=== PATIENT | male | born 2005 | race Two or more races ===

== ENCOUNTER 2024-11-20 11:53 | Inpatient (IN) | payer MEDICAID, SELFPAY ==
[2024-11-20] VITALS (50 sets, daily range): BP systolic 94–161; BP diastolic 52–111; PULSE 40–120; RESP 14–35; TEMP 36.2–37.1; O2SAT 73–100; BMI 26.9; BMI 25.9
--- NOTE | 2024-11-20 11:59 | PD.EDAMS ---
Altered Mental Status RME/HPI General Chief Complaint: Altered Mental Status Stated Complaint: STAT Time Seen by Provider: 11/20/24 12:03 Arrival date/time: 11/20/24 11:53 RME / HPI RME / HPI narrative: 19 year old male with no stated medical history presents to the ED BIBA from home for evaluation of altered mental status today. Per medics report, family on scene stated the patient was in the restroom about to shower when they heard a loud thud. States they found the patient on the floor and described body to be locked . On their arrival, patient was altered, bradycardic in the 40s, hypotensive in the 80s, diaphoretic, and pale. Prehospital Given 0.5mg Atropine and HR improved to 60-70s. Medic stated the patient was started on IV fluids; however, en route became combative and pulled out his IV. In the ED, patient appears confused. When asked if he has any medical history or where he is, he responds [place] . When asked if he has any allergies he responds seafood . No further history obtainable from the patient. Related Data Previous Rx's ?Medication ?Instructions ?Recorded levetiracetam 500 mg tablet 500 mg PO BID #30 tabs 11/23/24 (Keppra) Allergies Allergy/AdvReac Type Severity Reaction Status Date / Time Fish Containing Products Allergy Verified 11/21/24 12:53 shellfish derived Allergy Verified 11/21/24 12:53 Review of Systems Review of Systems ROS Unobtainable: unobtainable due to mental status Past Medical History Past Medical History NEUROLOGIC: Negative Neurological Disorders CARDIAC: Negative Cardiac Disorders GENITOURINARY: Negative Renal Disease Social History SMOKING STATUS: Unknown if ever smoked SUBSTANCE USE: marijuana (First time today. ) ED Exam General General appearance: Present other (Awake, confused, mildly agitated ) Head Head exam: Present atraumatic and normocephalic Eye Eye exam: Present normal appearance, PERRL and EOMI ENT ENT exam: Present normal exam, normal oropharynx and mucous membranes moist Neck Neck exam: Present normal inspection, full ROM and trachea midline Chest Chest inspection: Present normal inspection and symmetric chest wall rise Respiratory Respiratory exam: Present normal lung sounds bilaterally Cardiovascular Cardiovascular exam: Present regular rate, normal rhythm and normal heart sounds Abdominal Exam Abdominal exam: Present soft and normal bowel sounds Extremities Exam Extremities exam: Present full ROM Back Exam Back exam: Present full ROM and other (abrasion right shoulder) Neurological Exam Neurological exam: Present other (Awake, appears confused, mildly agitated but is redirectable, answering questions inappropriately, moving all extremities ) Psychiatric Psychiatric exam: Present agitated Skin Skin exam: Present warm, dry, intact and normal color Course Quality Measures none Orders Category Date Time Status 24 HR Medical Restraints Q2HR Care 11/20/24 14:37 Completed Bedside COVID-19 Antigen Test NOW Care 11/20/24 12:04 Completed Bedside Influenza A&B Antigen Test NOW Care 11/20/24 12:[address] Screening NOW Care 11/20/24 13:34 Completed EKG (ED ONLY) *Do not use* NOW Care 11/20/24 12:05 Completed Emergency Titration Protocol Stat Care 11/20/24 15:50 Ordered Emergency Titration Protocol Stat Care 11/20/24 16:12 Ordered Emergency Titration Protocol Stat Care 11/20/24 16:52 Ordered Insert IV NOW Care 11/20/24 12:11 Completed Insert NG / OG tube NOW Care 11/20/24 14:54 Completed Intubation NOW Care 11/20/24 14:43 Completed Intubation NOW Care 11/20/24 14:[address] angio chest Stat Exams 11/20/24 13:[address] head/brain wo con Stat Exams 11/20/24 12:04 Completed EKG (ED Only) Stat Exams 11/20/24 12:05 Draft XR chest 1V post procedure Stat Exams 11/20/24 14:55 Completed ABG [Arterial Blood Gas] Stat Lab 11/20/24 15:17 Completed ABG [Arterial Blood Gas] Stat Lab 11/20/24 16:23 Completed ABG [Arterial Blood Gas] Stat Lab 11/20/24 17:56 Completed Acetaminophen Stat Lab 11/20/24 14:10 Completed Alcohol, Blood Medical Stat Lab 11/20/24 12:00 Completed Ammonia Stat Lab 11/20/24 14:10 Completed Arterial Blood Gas Stat Lab 11/20/24 15:03 Completed CBC Stat Lab 11/20/24 12:00 Completed CMP [Comprehensive Metabolic Panel] Stat Lab 11/20/24 12:00 Completed CMP [Comprehensive Metabolic Panel] Stat Lab 11/20/24 14:10 Completed D-Dimer Stat Lab 11/20/24 12:00 Completed Drug Screen,Urine Stat Lab 11/20/24 13:11 Completed Salicylate Stat Lab 11/20/24 14:10 Completed Sputum Culture and Gram Stain Routine Lab 11/20/24 15:03 Completed T4 (Thyroxine) Stat Lab 11/20/24 14:10 Completed TSH [Thyroid Stimulating Hormone] Stat Lab 11/20/24 14:10 Completed Troponin I Stat Lab 11/20/24 12:00 Completed VBG [Venous Blood Gas] Stat Lab 11/20/24 14:10 Completed Diazepam Inj [Valium Inj] Med 11/20/24 13:56 Discontinued 10 mg .ROUTE .STK-MED ONE Diazepam Inj [Valium Inj] Med 11/20/24 14:07 Discontinued 5 mg IVP X1 ONE DiphenhydrAMINE INJ [Benadryl Inj] Med 11/20/24 13:57 Discontinued 50 mg .ROUTE .STK-MED ONE DiphenhydrAMINE INJ [Benadryl Inj] Med 11/20/24 14:08 Discontinued 50 mg IVP X1 ONE Etomidate Inj [Amidate Inj] Med 11/20/24 14:33 Discontinued 20 mg IVP X1 ONE Haloperidol Lactate [Haldol Inj] Med 11/20/24 13:54 Discontinued 5 mg .ROUTE .STK-MED ONE Midazolam Inj [Versed Inj] Med 11/20/24 13:49 Discontinued 2 mg .ROUTE .STK-MED ONE Midazolam Inj [Versed Inj] Med 11/20/24 13:42 Discontinued 2 mg IVP X1 ONE Midazolam Inj [Versed Inj] Med 11/20/24 13:53 Discontinued 2 mg IVP X1 ONE Midazolam Inj [Versed Inj] Med 11/20/24 13:00 Discontinued 5 mg IVP X1 ONE Midazolam Inj [Versed Inj] Med 11/20/24 16:19 Discontinued 5 mg IVP X1 ONE Midazolam Inj [Versed Inj] Med 11/20/24 13:03 Discontinued 6 mg .ROUTE .STK-MED ONE Midazolam Inj [Versed Inj] Med 11/20/24 16:08 Discontinued 6 mg .ROUTE .STK-MED ONE Midazolam/Ns 100 mg Ivpb [Versed Pf Inj in Ns Premix] Med 11/20/24 15:48 Discontinued 100 mg in 100 ml IV 1 mg/hr Propofol 1,000 mg Ivpb [Diprivan Ivpb] Med 11/20/24 14:37 Discontinued 1,000 mg in 100 ml IV 5 mcg/kg/min Ringers Lactated 1000 ml [Lactated Ringers] 1,000 ml Med 11/20/24 12:05 Discontinued IV 999 mls/hr Ringers Lactated 1000 ml [Lactated Ringers] 1,000 ml Med 11/20/24 13:34 Discontinued IV 999 mls/hr Rocuronium Inj [Zemuron Inj] Med 11/20/24 16:12 Discontinued 100 mg .ROUTE .STK-MED ONE Rocuronium Inj [Zemuron Inj] Med 11/20/24 16:13 Discontinued 50 mg IVP X1 ONE Rocuronium Inj [Zemuron Inj] Med 11/20/24 14:33 Discontinued 75 mg IVP X1 ONE fentaNYL 2,500 MCG/250 ML BAG [Sublimaze Inj 2,500 MCG/ Med 11/20/24 15:50 Discontinued 250 ML BAG] 2,500 mcg in 250 ml IV 25 mcg/hr levETIRAcetam INJ [Keppra Inj] Med 11/20/24 12:04 Discontinued 1,000 mg IVP X1 ONE Sputum Induction PRN RT 11/20/24 15:00 Ordered Vital Signs Vital signs: Vital Signs Temperature 97.8 F 11/20/24 12:09 Pulse Rate 89 11/20/24 12:09 Respiratory Rate 16 11/20/24 12:09 Blood Pressure 114/60 11/20/24 12:09 Pulse Oximetry (%) 96 11/20/24 12:09 Oxygen Delivery Method Room Air 11/20/24 12:09 Pulse ox is 96% on room air which is adequate. Altered Mental Status MDM Narrative MDM Narrative:: Patient is a 19-year-old male is in the emergency department brought in by EMS after having passed out in the bathroom. Concern for ACS arrhythmia electrolyte abnormality viral syndrome pneumonia overdose intoxication first-time seizure among others. Immediately placed in resuscitation room, obtain IV access. Ordered CT brain, labs, seizure medications, and placed him on monitor tech. Labs with evidence of leukocytosis 12.6, no left shift. No other hematologic abnormality. Patient D-dimer is 803. Ordered CT angio of the chest. Patient blood gas pH 7.23 pCO2 51 postintubation. Increased patient's respiratory rate of loss in the CO2. Patient is feeling within a gap acidosis, likely secondary to patient's seizure. Patient received fluid resuscitation, repeat labs with normal gap, bicarb 17.7. Creatinine normal. No significant transaminitis. Ammonia is 34. Troponin not elevated. Thyroid studies unremarkable. Tylenol salicylate negative, patient is positive for marijuana negative for alcohol. Chest x-ray unremarkable for acute abnormalities. Head CT without any evidence of acute intracranial hemorrhage on my assessment. 13:01h Patient had a grand mal seizure, lasting ~ 1 minute. Given 5mg Versed. Keppra ordered at 12:04h and yet to be given. Per mother, patient was talking to her just prior to seizing. 13:42h Patient is agitated at this time. Will order 2mg Versed. 13:42h RN reports the patient is still agitated, has yet to go to CT. 14:00h Patient combative, grover scott called overhead. During this time he had urine incontinence. Concern for possible repeat seizure. Versed ordered. 14:25h Notified by RN the patient is still combative in CT in spite of receiving 5mg IV Valium and 50mg IV Benadryl. Patient was also given 2mg IV Versed at 13:46h and 13:55h. Plan to intubate given concerns for subclinical seizures, status epilepticus as patient has not returned to his baseline and airway protection. 14:46h Patient intubated with no complications. Given 20mg Etomidate and 75mg Rocuronium. 13:48h Called to bedside by RN who reports the patient is awake. I pushed 20mg of Propofol and the Propofol drip was increased to 20mcg/kg/min. Will also start the patient on Versed drip. Despite this patient combative, is in 4-point restraints, concern that patient is going to self extubate. Also concerned that given patient's episodes of agitation, patient did not return to baseline, concern for acute intracranial pathology. Patient was given 50 rocuronium, sedation increased so that we can complete patient's scans. Patient was a CT scan, without any complications. ABG with pCO2 51. Increased respiratory rate. Will get a repeat blood gas. 16:54h discussed case with transmission and coordination engineer Dr. Cardona, accepted patient for admission. Patient is currently on 50 of propofol, 3 of Versed, 25 with fentanyl. Patient data External records reviewed:: EMS form Clinical information provided by:: patient and EMS Social determinants that could affect healthcare access:: none Patient has the following chronic illnesses:: None How is presenting disease/condition affected by chronic disease/condition?: no chronic disease Evaluation data The following diagnostics were reviewed and interpreted by me:: lab results, radiology exam(s) and EKG tracing(s) Lab and/or radiology exams considered but not ordered:: None Interpretation Summary: See MDM Medications / Prescriptions Medications or Prescriptions considered but not ordered:: None Medication administrations:: Medication Administration History Discontinued Medications Acetaminophen (Acetaminophen 325 Mg Tablet) 650 mg PO Q4HR PRN PRN Reason: Pain Scale 1-10 or Temp >100 Stop: 12/20/24 17:06 Diazepam (Diazepam Inj 5 Mg/Ml Vial 2 Ml) Confirm Administered Dose 10 mg .ROUTE .STK-MED ONE Stop: 11/20/24 13:57 Last Admin: 11/20/24 14:36 Dose: Not Given Documented By: KIRILL Non-Admin Reason: Duplicate Medication on eMAR Diazepam (Diazepam Inj 5 Mg/Ml Vial 2 Ml) 5 mg IVP X1 ONE Stop: 11/20/24 14:08 Last Admin: 11/20/24 14:05 Dose: 5 mg Documented By: KIRILL Diphenhydramine HCl (Diphenhydramine Inj 50 Mg/Ml Vial) Confirm Administered Dose 50 mg .ROUTE .STK-MED ONE Stop: 11/20/24 13:58 Last Admin: 11/20/24 14:36 Dose: Not Given Documented By: KIRILL Non-Admin Reason: Duplicate Medication on eMAR Diphenhydramine HCl (Diphenhydramine Inj 50 Mg/Ml Vial) 50 mg IVP X1 ONE Stop: 11/20/24 14:09 Last Admin: 11/20/24 14:13 Dose: 50 mg Documented By: KIRILL Enoxaparin Sodium (Enoxaparin Sod Inj 40 Mg/0.4 Ml Syringe) 40 mg SC HS HANNA Stop: 12/05/24 20:59 Last Admin: 11/22/24 20:40 Dose: 40 mg Documented By: Admin: 11/21/24 21:27 Dose: 40 mg Documented By: MARY Etomidate (Etomidate Inj 2 Mg/Ml Vial 10 Ml) 20 mg IVP X1 ONE Stop: 11/20/24 14:34 Last Admin: 11/20/24 14:44 Dose: 20 mg Documented By: PAULINE Comments: MED GIVEN BY SANDHYA CODY Haloperidol Lactate (Haloperidol Lact Inj 5 Mg/Ml Vial) Confirm Administered Dose 5 mg .ROUTE .STK-MED ONE Stop: 11/20/24 13:55 Last Admin: 11/20/24 14:36 Dose: Not Given Documented By: KIRILL Non-Admin Reason: Discontinued Haloperidol Lactate (Haloperidol Lact Inj 5 Mg/Ml Vial) 5 mg IV Q6HR PRN PRN Reason: AGITATION (SEVERE) Stop: 11/25/24 18:04 Heparin Sodium (Porcine) (Heparin Sod Inj 5000 Unit/Ml Vial) 5,000 unit SC Q8HR HANNA Stop: 12/04/24 17:14 Last Admin: 11/21/24 05:16 Dose: 5,000 unit Documented By: LISA Co-signed By: DEYA Admin: 11/20/24 22:42 Dose: Not Given Documented By: LISA Non-Admin Reason: Wrong Time Comments: last dose given 1855 Admin: 11/20/24 18:56 Dose: 5,000 unit Documented By: YURI Co-signed By: LISA Lactated Ringer's (Lactated Ringers) 1,000 mls @ 999 mls/hr IV .Q1H1M ONE Stop: 11/20/24 13:05 Last Infusion: 11/20/24 14:24 Dose: Infused Documented By: Admin: 11/20/24 13:23 Dose: 999 mls/hr Documented By: KIRILL Lactated Ringer's (Lactated Ringers) 1,000 mls @ 999 mls/hr IV .Q1H1M ONE Stop: 11/20/24 14:34 Last Infusion: 11/20/24 16:20 Dose: Infused Documented By: Admin: 11/20/24 14:59 Dose: 999 mls/hr Documented By: PAULINE Propofol (Diprivan Ivpb) 1,000 mg in 100 mls @ 2.558 mls/hr IV .Q24H PRN; Protocol PRN Reason: PER PROTOCOL Stop: 12/20/24 14:36 Last Titration: 11/20/24 23:58 Dose: 0 mcg/kg/min, 0 mls/hr Documented By: Titration: 11/20/24 23:45 Dose: 5 mcg/kg/min, 2.558 mls/hr Documented By: Titration: 11/20/24 23:40 Dose: 10 mcg/kg/min, 5.117 mls/hr Documented By: Titration: 11/20/24 23:25 Dose: 15 mcg/kg/min, 7.675 mls/hr Documented By: Titration: 11/20/24 23:00 Dose: 20 mcg/kg/min, 10.233 mls/hr Documented By: Titration: 11/20/24 22:45 Dose: 20 mcg/kg/min, 10.233 mls/hr Documented By: Admin: 11/20/24 22:36 Dose: 25 mcg/kg/min, 12.791 mls/hr Documented By: CMN Co-signed By: BB Titration: 11/20/24 22:30 Dose: Infused Documented By: Titration: 11/20/24 22:15 Dose: Infused Documented By: Titration: 11/20/24 22:00 Dose: 35 mcg/kg/min, 17.908 mls/hr Documented By: Titration: 11/20/24 21:28 Dose: 40 mcg/kg/min, 20.466 mls/hr Documented By: Titration: 11/20/24 21:00 Dose: 45 mcg/kg/min, 23.024 mls/hr Documented By: Titration: 11/20/24 20:20 Dose: 45 mcg/kg/min, 23.024 mls/hr Documented By: Titration: 11/20/24 20:00 Dose: 50 mcg/kg/min, 25.583 mls/hr Documented By: Titration: 11/20/24 19:00 Dose: 50 mcg/kg/min, 25.583 mls/hr Documented By: Titration: 11/20/24 18:00 Dose: 50 mcg/kg/min, 25.583 mls/hr Documented By: Titration: 11/20/24 17:00 Dose: 50 mcg/kg/min, 25.583 mls/hr Documented By: Titration: 11/20/24 16:18 Dose: 50 mcg/kg/min, 25.583 mls/hr Documented By: Titration: 11/20/24 16:00 Dose: 20 mcg/kg/min, 10.233 mls/hr Documented By: Titration: 11/20/24 15:50 Dose: 20 mcg/kg/min, 10.233 mls/hr Documented By: Titration: 11/20/24 15:45 Dose: 10 mcg/kg/min, 5.117 mls/hr Documented By: Admin: 11/20/24 14:50 Dose: 5 mcg/kg/min, 2.558 mls/hr Documented By: DB Co-signed By: KIRILL Midazolam HCl (Versed Pf Inj In Ns Premix) 100 mg in 100 mls @ 1 mls/hr IV .Q24H PRN; Protocol PRN Reason: PER PROTOCOL Stop: 11/25/24 15:47 Last Titration: 11/21/24 07:45 Dose: 0 mg/hr, 0 mls/hr Documented By: Titration: 11/21/24 07:00 Dose: 5 mg/hr, 5 mls/hr Documented By: Titration: 11/21/24 06:00 Dose: 5 mg/hr, 5 mls/hr Documented By: Titration: 11/21/24 05:00 Dose: 5 mg/hr, 5 mls/hr Documented By: Titration: 11/21/24 04:00 Dose: 5 mg/hr, 5 mls/hr Documented By: Titration: 11/21/24 03:00 Dose: 5 mg/hr, 5 mls/hr Documented By: Titration: 11/21/24 02:00 Dose: 6 mg/hr, 6 mls/hr Documented By: Titration: 11/21/24 01:34 Dose: 7 mg/hr, 7 mls/hr Documented By: Admin: 11/21/24 01:04 Dose: 8 mg/hr, 8 mls/hr Documented By: CMN Co-signed By: LISA(2) Titration: 11/21/24 01:04 Dose: Infused Documented By: CMN Co-signed By: PRIYAN(2) Titration: 11/21/24 01:00 Dose: 8 mg/hr, 8 mls/hr Documented By: Titration: 11/21/24 00:15 Dose: 9 mg/hr, 9 mls/hr Documented By: Titration: 11/21/24 00:00 Dose: 10 mg/hr, 10 mls/hr Documented By: Titration: 11/20/24 23:00 Dose: 10 mg/hr, 10 mls/hr Documented By: Titration: 11/20/24 22:00 Dose: 10 mg/hr, 10 mls/hr Documented By: Titration: 11/20/24 21:00 Dose: 10 mg/hr, 10 mls/hr Documented By: Titration: 11/20/24 20:00 Dose: 10 mg/hr, 10 mls/hr Documented By: Titration: 11/20/24 19:00 Dose: 10 mg/hr, 10 mls/hr Documented By: Titration: 11/20/24 18:00 Dose: 10 mg/hr, 10 mls/hr Documented By: Titration: 11/20/24 17:59 Dose: 10 mg/hr, 10 mls/hr Documented By: Titration: 11/20/24 17:17 Dose: 7 mg/hr, 7 mls/hr Documented By: Titration: 11/20/24 17:10 Dose: 5 mg/hr, 5 mls/hr Documented By: Titration: 11/20/24 17:06 Dose: 4 mg/hr, 4 mls/hr Documented By: Titration: 11/20/24 17:00 Dose: 3 mg/hr, 3 mls/hr Documented By: Titration: 11/20/24 16:49 Dose: 3 mg/hr, 3 mls/hr Documented By: Titration: 11/20/24 16:18 Dose: 2 mg/hr, 2 mls/hr Documented By: Admin: 11/20/24 16:00 Dose: 1 mg/hr, 1 mls/hr Documented By: ED Co-signed By: VL Fentanyl Citrate (Sublimaze Inj 2,500 Mcg/250 Ml Bag) 2,500 mcg in 250 mls @ 2.5 mls/hr IV .Q24H PRN; Protocol PRN Reason: PER PROTOCOL Stop: 11/25/24 15:49 Last Titration: 11/21/24 07:45 Dose: 0 mcg/hr, 0 mls/hr Documented By: Titration: 11/21/24 07:00 Dose: 200 mcg/hr, 20 mls/hr Documented By: Titration: 11/21/24 06:00 Dose: 250 mcg/hr, 25 mls/hr Documented By: Titration: 11/21/24 05:00 Dose: 250 mcg/hr, 25 mls/hr Documented By: Titration: 11/21/24 04:00 Dose: 250 mcg/hr, 25 mls/hr Documented By: Titration: 11/21/24 03:00 Dose: 250 mcg/hr, 25 mls/hr Documented By: Titration: 11/21/24 02:42 Dose: 250 mcg/hr, 25 mls/hr Documented By: Titration: 11/21/24 02:00 Dose: 300 mcg/hr, 30 mls/hr Documented By: Admin: 11/21/24 01:07 Dose: 300 mcg/hr, 30 mls/hr Documented By: CMN Co-signed By: LISA(2) Titration: 11/21/24 01:07 Dose: Infused Documented By: CMN Co-signed By: LISA(2) Titration: 11/21/24 01:00 Dose: 300 mcg/hr, 30 mls/hr Documented By: Titration: 11/21/24 00:00 Dose: 300 mcg/hr, 30 mls/hr Documented By: Titration: 11/20/24 23:00 Dose: 300 mcg/hr, 30 mls/hr Documented By: Titration: 11/20/24 22:00 Dose: 300 mcg/hr, 30 mls/hr Documented By: Titration: 11/20/24 21:00 Dose: 300 mcg/hr, 30 mls/hr Documented By: Titration: 11/20/24 20:00 Dose: 300 mcg/hr, 30 mls/hr Documented By: Titration: 11/20/24 19:00 Dose: 300 mcg/hr, 30 mls/hr Documented By: Titration: 11/20/24 18:00 Dose: 300 mcg/hr, 30 mls/hr Documented By: Titration: 11/20/24 17:59 Dose: 300 mcg/hr, 30 mls/hr Documented By: Titration: 11/20/24 17:51 Dose: 175 mcg/hr, 17.5 mls/hr Documented By: Titration: 11/20/24 17:42 Dose: 125 mcg/hr, 12.5 mls/hr Documented By: Titration: 11/20/24 17:29 Dose: 75 mcg/hr, 7.5 mls/hr Documented By: Titration: 11/20/24 17:00 Dose: 25 mcg/hr, 2.5 mls/hr Documented By: Admin: 11/20/24 16:23 Dose: 25 mcg/hr, 2.5 mls/hr Documented By: PAULINE Co-signed By: DEL Ketamine HCl 500 mg/ Sodium (Chloride) 250 mls @ 31.978 mls/hr IV .Q7H50M PRN; Protocol PRN Reason: PER PROTOCOL Stop: 12/20/24 18:09 Lactated Ringer's (Lactated Ringers) 1,000 mls @ 999 mls/hr IV .Q1H1M ONE Stop: 11/20/24 19:11 Last Infusion: 11/20/24 21:28 Dose: Infused Documented By: Admin: 11/20/24 18:50 Dose: 999 mls/hr Documented By: YURI Lactated Ringer's (Lactated Ringers) 1,000 mls @ 125 mls/hr IV .Q8H HANNA Stop: 12/21/24 16:18 Last Admin: 11/22/24 01:19 Dose: 125 mls/hr Documented By: Infusion: 11/22/24 00:45 Dose: Infused Documented By: Admin: 11/21/24 16:45 Dose: 125 mls/hr Documented By: PAULA Acetaminophen (Ofirmev Inj) 1,000 mg in 100 mls @ 250 mls/hr IV NOW ONE Stop: 11/21/24 20:59 Last Admin: 11/21/24 21:27 Dose: 250 mls/hr Documented By: MARY Magnesium Sulfate (Magnesium Sulfate Ivpb) 4 gm in 50 mls @ 12.5 mls/hr IV X1 ONE Stop: 11/23/24 16:00 Last Admin: 11/23/24 13:10 Dose: 12.5 mls/hr Documented By: EVELIO Lacosamide (Lacosamide Inj 200 Mg/20 Ml Vial) 200 mg IVP X1 ONE Stop: 11/20/24 17:29 Last Admin: 11/20/24 18:49 Dose: Not Given Documented By: YURI Non-Admin Reason: not given per dr park at bedside Levetiracetam (Levetiracetam Inj 100 Mg/Ml Vial 5ml) 1,000 mg IVP X1 ONE Stop: 11/20/24 12:05 Last Admin: 11/20/24 13:22 Dose: 1,000 mg Documented By: KIRILL Levetiracetam (Levetiracetam Inj 100 Mg/Ml Vial 5ml) 500 mg IVP Q12HR HANNA Stop: 12/21/24 08:59 Last Admin: 11/23/24 09:14 Dose: 500 mg Documented By: Admin: 11/22/24 20:41 Dose: 500 mg Documented By: Admin: 11/22/24 08:55 Dose: 500 mg Documented By: Admin: 11/21/24 21:27 Dose: 500 mg Documented By: Admin: 11/21/24 09:22 Dose: 500 mg Documented By: PAULA Magnesium Hydroxide (Milk Of Magnesia Susp 30 Ml Udc) 30 ml PO QDAY PRN PRN Reason: CONSTIPATION Stop: 12/20/24 17:06 Midazolam HCl (Midazolam Inj 1 Mg/Ml Vial 2 Ml) Confirm Administered Dose 6 mg .ROUTE .STK-MED ONE Stop: 11/20/24 13:04 Last Admin: 11/20/24 13:41 Dose: Not Given Documented By: PAULINE Non-Admin Reason: Duplicate Medication on eMAR Midazolam HCl (Midazolam Inj 1 Mg/Ml Vial 2 Ml) 5 mg IVP X1 ONE Stop: 11/20/24 13:01 Last Admin: 11/20/24 13:04 Dose: 5 mg Documented By: VL Midazolam HCl (Midazolam Inj 1 Mg/Ml Vial 2 Ml) 2 mg IVP X1 ONE Stop: 11/20/24 13:43 Last Admin: 11/20/24 13:46 Dose: 2 mg Documented By: EF Midazolam HCl (Midazolam Inj 1 Mg/Ml Vial 2 Ml) Confirm Administered Dose 2 mg .ROUTE .STK-MED ONE Stop: 11/20/24 13:50 Last Admin: 11/20/24 14:37 Dose: Not Given Documented By: KIRILL Non-Admin Reason: Duplicate Medication on eMAR Midazolam HCl (Midazolam Inj 1 Mg/Ml Vial 2 Ml) 2 mg IVP X1 ONE Stop: 11/20/24 13:54 Last Admin: 11/20/24 13:55 Dose: 2 mg Documented By: KIRILL Midazolam HCl (Midazolam Inj 1 Mg/Ml Vial 2 Ml) Confirm Administered Dose 6 mg .ROUTE .STK-MED ONE Stop: 11/20/24 16:09 Last Admin: 11/20/24 16:22 Dose: Not Given Documented By: DB Non-Admin Reason: Duplicate Medication on eMAR Midazolam HCl (Midazolam Inj 1 Mg/Ml Vial 2 Ml) 5 mg IVP X1 ONE Stop: 11/20/24 16:20 Last Admin: 11/20/24 16:18 Dose: 5 mg Documented By: DB Midazolam HCl (Midazolam Inj 1 Mg/Ml Vial 2 Ml) 5 mg IVP X1 ONE Stop: 11/20/24 17:23 Last Admin: 11/20/24 17:28 Dose: 5 mg Documented By: DB Midazolam HCl (Midazolam Inj 1 Mg/Ml Vial 2 Ml) 2 mg IVP X1 PRN PRN Reason: Seizure > 3 minutes Stop: 11/26/24 10:04 Ondansetron HCl (Ondansetron Inj 2 Mg/Ml Inj 2 Ml) 4 mg IVP NOW ONE; Protocol Stop: 11/21/24 12:52 Last Admin: 11/22/24 00:33 Dose: Not Given Documented By: AD Non-Admin Reason: Not In Room Ondansetron HCl (Ondansetron Inj 2 Mg/Ml Inj 2 Ml) 4 mg IVP Q6HR PRN; Protocol PRN Reason: NAUSEA OR VOMITING Stop: 12/21/24 16:14 Pantoprazole Sodium (Pantoprazole Inj 40 Mg Vial) 40 mg IVP QDAY HANNA Stop: 12/20/24 22:14 Last Admin: 11/21/24 09:22 Dose: 40 mg Documented By: Admin: 11/20/24 22:37 Dose: 40 mg Documented By: LISA Propofol (Propofol Inj 10 Mg/Ml Vial 20 Ml) 50 mg IV X1 ONE Stop: 11/20/24 17:23 Last Admin: 11/20/24 17:28 Dose: 50 mg Documented By: DB Comments: MED PUSHED BY DR. FENG Rocuronium [place] (Rocuronium Inj 10 Mg/Ml Vial 10 Ml) 75 mg IVP X1 ONE Stop: 11/20/24 14:34 Last Admin: 11/20/24 14:45 Dose: 75 mg Documented By: PAULINE Co-signed By: Comments: MED GIVEN BY SANDHYA CODY Rocuronium [place] (Rocuronium Inj 10 Mg/Ml Vial 10 Ml) 50 mg IVP X1 ONE Stop: 11/20/24 16:14 Last Admin: 11/20/24 16:16 Dose: 50 mg Documented By: PAULINE Co-signed By: KIRILL Comments: RASS +3 Rocuronium [place] (Rocuronium Inj 10 Mg/Ml Vial 10 Ml) Confirm Administered Dose 100 mg .ROUTE .STK-MED ONE Stop: 11/20/24 16:13 Last Admin: 11/20/24 16:22 Dose: Not Given Documented By: PAULINE Non-Admin Reason: Duplicate Medication on eMAR See above Consultations Consultation(s) initiated? (list below): Yes Diagnosis Differential diagnosis altered mental status: other Most likely diagnosis given after review of the tests above:: Status epilepticus Admission Indicated Admission indicated?: indicated Admission Request Was there a request for admission?: Yes Admission Attestation Admission request attestation: Discussed case with Hospitalist service regarding admission. Discussed patients ED course, exam findings, labs, and radiology results. The Hospitalist [agrees] to accept the patient for admission. Disposition Plan Disposition Plan: Admit Critical Care Time Critical Care Time Critical Care Time: Yes Total Critical Care Time (min.): 120 Attestation: The high probability of sudden, clinically significant deterioration in the patient's condition required the highest level of my preparedness to intervene urgently. The services I provided to this patient were to treat and/or prevent clinically significant deterioration. Services included the following: chart data review, reviewing nursing notes and/or old charts, documentation time, leasing consultant collaboration regarding findings and treatment options, medication orders and management, direct patient care, vital sign assessments and ordering, interpreting and reviewing diagnostic studies and lab tests. Aggregate critical care time includes only time during which I was engaged in work directly related to the patient's care, as described above, whether at bedside or elsewhere in the Emergency Department. It did not include time spent performing other reported procedures or the services of residents, students, nurses or physician assistants. Discharge Plan Plan Patient Disposition: Admit Acute Care w/in Hospital Patient condition on transfer: Stable Problem List Clinical Impression: Status epilepticus
--- NOTE | 2024-11-20 12:04 | XR_ITS ---
Examination: CT brain head without contrast. 2-D sagittal coronal reconstructions Date and time of exam:November 20, 2024, 1637 hrs. Altered mental status with hypoxic respiratory failure today CTDI: vol (mGy):54.8 DLP: (mGycm):1136 Technique: Multiple CT axial sections of the brain have been obtained, 5 mm slice thickness. Contrast has not been administered. 2-D sagittal, coronal reconstructions have been obtained Low dose protocols were performed. One or more of the following dose reduction techniques were used; automated exposure control, adjustment of the mA and/or KV according to patient size, use of iterative reconstruction technique. Findings: No significant ventricular enlargement. Intra-axial or extra-axial hemorrhage density is not seen. No mass effect or midline shift Basal cisterns are not remarkable. Fourth ventricle is midline. Cranial vault intact. Impression: Negative for acute hemorrhage, mass effect or midline shift
--- NOTE | 2024-11-20 12:05 | EKG_ITS ---
[facility] Test Date: 2024-11-20 Pat Name: LEEROY AVITIA Department: Room: - Gender: Male Etl Consultant: : [id number] Requested By: Daria Linares Order Number: [id number] Reading MD: Daria Linares Measurements Intervals Lillian Rate: 83 P: 44 NV: 124 QRS: 28 QRSD: 92 T: 43 QT: 373 QTc: 439 Interpretive Statements SINUS RHYTHM No previous ECG available for comparison /store/S0/[id number]/ecg/[id number].pdf
[2024-11-20 12:24] LABS: Basophils # (Auto) 0.1 Thou/mm3 (0.0-0.2); Basophils % (Auto) 0 % (0-2.5); Eosinophils # (Auto) 0.1 Thou/mm3 (0.0-0.5); Eosinophils % (Auto) 1 % (0-10); Hematocrit 45.2 % (41.0-53.0); Hemoglobin 15.5 g/dL (13.5-16.0); Immature Granulocytes Auto 0.53 Thou/mm3 (0.00-0.00); Lymphocytes # (Auto) 4.9 Thou/mm3 (1.0-4.8); Lymphocytes % (Auto) 39 % (10-50); Mean Corpuscular HGB Conc 34.3 g/dl (31.0-37.0); Mean Corpuscular Hemoglobin 31.4 pg (25.0-35.0); Mean Corpuscular Volume 92 fL (80-100); Monocytes # (Auto) 0.7 Thou/mm3 (0.0-0.8); Monocytes % (Auto) 5 % (0-12); Neutrophils # (Auto) 6.3 Thou/mm3 (1.8-7.7); Neutrophils % (Auto) 50 % (37-80); Nucleated Red Blood Cell # 0.00 Thou/mm3 (0.00-0.00); Nucleated Red Blood Cell % 0 /100 WBC (0); Platelet Count 356 Thou/mm3 (140-440); RDW Standard Deviation 40.2 fL (35.1-43.9); Red Blood Count 4.94 Miln/mm3 (4.50-5.90); White Blood Count 12.6 Thou/mm3 (4.5-11.0)
[2024-11-20 13:01] LABS: Alanine Aminotransferase 21 U/L (10-49); Albumin, Serum 5.0 gm/dL (3.5-5.0); Albumin/Globulin Ratio 1.9 (1.2-2.2); Alcohol, Blood Medical < 3.0 mg/dL (0-10.0); Alkaline Phosphatase 75 U/L (46-116); Anion Gap 23 (7-16); Aspartate Amino Transferase 27 U/L (0-34); BUN/Creatinine Ratio 9 Ratio (12-20); Bilirubin,Total 1.2 mg/dL (0.3-1.2); Blood Urea Nitrogen 10 mg/dL (9-23); Calcium 9.7 mg/dL (8.3-10.6); Calcium (Corrected) 9.7 mg/dL (8.5-10.1); Chloride 105 mMol/L (98-107); Creatinine (Component) 1.1 mg/dL (0.6-1.3); Estimated Creatinine Clearance 110.6 mL/min (>60); Globulin 2.7 gm/dL (2.3-3.5); Glucose 181 mg/dL (74-106); Osmolality,Calculated 285 (275-295); Potassium 3.4 mMol/L (3.4-5.1); Sodium 141 mMol/L (136-145); Total Protein 7.7 gm/dL (5.7-8.2); Troponin I < 0.002 ng/mL (0.0-0.045); eGFR > 60 See Note
[2024-11-20 13:04] LABS: D-Dimer 803 ng/mL (<600)
[2024-11-20] MEDS: MIDAZOLAM INJ 1 MG/ML VIAL 2 ML 5 MG IVP ×3 (13:04→17:28)
[2024-11-20] MEDS: levETIRAcetam INJ 100 MG/ML VIAL 5ML 1000 MG IVP (13:22)
[2024-11-20] MEDS: RINGERS LACTATED 1000 ML 1,000 ML 999 ML IV ×3 (13:23→18:50)
[2024-11-20 13:25] LABS: Carbon Dioxide 13.1 mMol/L (20.0-31.0)
--- NOTE | 2024-11-20 13:33 | XR_ITS ---
Examination: CTA chest with intravenous contrast 2-D reconstructions 3-D reconstructions, vascular Date and time of exam: November 20, 2024, 1709 hrs. Indications: Onset chest pain altered mental status hypoxic respiratory failure today CTDI: vol (mGy) 31.1 DLP: (mGycm) 547 Technique: Multiple axial sections of the thorax have been obtained. 3 mm slice thickness, from below the hemidiaphragms to above the apices of the lungs. Mediastinal and lung density settings have been obtained. 2-D sagittal and coronal reconstructions. 3-D angiographic renderings, 3-D volume renderings, 3D post processing, vascular maximum intensity projections obtained. Contrast administered is 100 cc Isovue-370 intravenous. Low dose protocols were performed. One or more of the following dose reduction techniques were used; automated exposure control, adjustment of the mA and/or KV according to patient size, use of iterative reconstruction technique. Findings: No thoracic aortic aneurysmal dilatation or dissection Pulmonary artery segments are not enlarged. No pulmonary artery emboli No paratracheal tracheobronchial or bronchopulmonary adenopathy. Endotracheal tube tip 27 mm above damaris Soft areas of pneumonia in the right upper lobe Bibasilar pneumonia, consider aspiration pneumonia No visualized liver or splenic lesion No pancreatic mass Kidneys partially visualized no hydronephrosis Impression: Negative for pulmonary artery emboli Bibasilar pneumonia, consider aspiration pneumonia
[2024-11-20] MEDS: MIDAZOLAM INJ 1 MG/ML VIAL 2 ML 2 MG IVP ×2 (13:46→13:55)
[2024-11-20] MEDS: DIAZEPAM INJ 5 MG/ML VIAL 2 ML IVP (14:05)
[2024-11-20 14:14] LABS: Base Excess, Venous -10 (-3-3); O2 Saturation, Venous 80 % (96-97); PCO2, Venous 43 mmHg (36-56); PO2, Venous 51 mmHg (15-58); pH, Venous 7.22 (7.33-7.66)
[2024-11-20 14:35] LABS: Amphetamine/Methamp Scrn,U Negative (Negative); Barbiturate Screen,Urine Negative (Negative); Benzodiazepines Screen,Urine Negative (Negative); Benzoylecgonine Screen, Ur Negative (Negative); Fentanyl Screen,Urine Negative (Negative); Opiate Screen,Urine Negative (Negative); THC Screen,Urine Positive (Negative)
[2024-11-20 14:36] LABS: Ammonia 34 uMol/L (11-32)
[2024-11-20] MEDS: ETOMIDATE INJ 2 MG/ML VIAL 10 ML 20 MG IVP (14:44)
[2024-11-20] MEDS: ROCURONIUM INJ 10 MG/ML VIAL 10 ML 75 MG IVP (14:45)
[2024-11-20 14:46] LABS: Acetaminophen < 2.0 mcg/mL (10.0-20.0); Alanine Aminotransferase 19 U/L (10-49); Albumin, Serum 4.8 gm/dL (3.5-5.0); Albumin/Globulin Ratio 2.0 (1.2-2.2); Alkaline Phosphatase 66 U/L (46-116); Anion Gap 16 (7-16); Aspartate Amino Transferase 26 U/L (0-34); BUN/Creatinine Ratio 8 Ratio (12-20); Bilirubin,Total 0.8 mg/dL (0.3-1.2); Blood Urea Nitrogen 9 mg/dL (9-23); Calcium 9.3 mg/dL (8.3-10.6); Calcium (Corrected) 9.3 mg/dL (8.5-10.1); Carbon Dioxide 17.7 mMol/L (20.0-31.0); Chloride 107 mMol/L (98-107); Creatinine (Component) 1.1 mg/dL (0.6-1.3); Estimated Creatinine Clearance 110.6 mL/min (>60); Globulin 2.4 gm/dL (2.3-3.5); Glucose 126 mg/dL (74-106); Osmolality,Calculated 281 (275-295); Potassium 3.5 mMol/L (3.4-5.1); Salicylate < 3.0 mg/dL; Sodium 141 mMol/L (136-145); Thyroid Stimulating Hormone 2.16 uIU/mL (0.55-4.78); Total Protein 7.2 gm/dL (5.7-8.2); eGFR > 60 See Note
[2024-11-20] MEDS: PROPOFOL 1,000 MG IVPB 1,000 MG/100 ML VIAL 2.558 MG IV (14:50)
[2024-11-20 14:55] LABS: T4 (Thyroxine) 6.6 mcg/dL (4.5-10.9)
--- NOTE | 2024-11-20 14:55 | XR_ITS ---
Examination: AP chest single view TECHNIQUE: AP portable chest supine single view Date and time: November 20, 2024 1504 hours INDICATIONS: Altered mental status, hypoxic respiratory failure postintubation today. FINDINGS: Normal heart size No aspiration pneumonia. Endotracheal tube tip 5.3 cm above damaris. Orogastric tube in the stomach satisfactory position IMPRESSION: Negative for aspiration pneumonia Endotracheal tube tip 5.3 cm above damaris
[2024-11-20 15:08] LABS: Base Excess -7 (-3-3); HCO3 21 mEq/L (20-26); Inspired Oxygen, FIO2 100 %; O2 Saturation 56 % (91-98); PCO2 52 mmHg (32.0-48.0); pH, Arterial 7.22 (7.35-7.45)
[2024-11-20 15:11] LABS: Allen Test Performed/OK; Puncture Site Right Radial
[2024-11-20 15:12] LABS: PO2 35 mmHg (83-108)
[2024-11-20 15:20] LABS: Base Excess -5 (-3-3); HCO3 21 mEq/L (20-26); Inspired Oxygen, FIO2 100 %; O2 Saturation 101 % (91-98); PCO2 43 mmHg (32.0-48.0); PO2 510 mmHg (83-108); pH, Arterial 7.31 (7.35-7.45)
--- NOTE | 2024-11-20 15:20 | PC.NURSE ---
CALLED [employer] MA[employer]GER JAROD TO LET HER KNOW THAT WE ARE READY FOR CT SCAN, PER JAROD, THEY ARE UNABLE TO SCAN THE PT AT THIS TIME DUE TO THEM DOING A PROCEDURE. DR FENG MADE AWARE
[2024-11-20 15:22] LABS: Allen Test Performed/OK; Puncture Site Right Radial
[2024-11-20] MEDS: MIDAZOLAM/NS 100 MG IVPB 100 MG/100 ML BAG IV (16:00)
[2024-11-20] MEDS: ROCURONIUM INJ 10 MG/ML VIAL 10 ML 50 MG IVP (16:16)
[2024-11-20] MEDS: fentaNYL 2,500 MCG/250 ML BAG 2,500 MCG/250 ML BAG IV (16:23)
[2024-11-20 16:27] LABS: Allen Test Performed/OK; Base Excess -7 (-3-3); HCO3 21 mEq/L (20-26); Inspired Oxygen, FIO2 100 %; O2 Saturation 100 % (91-98); PCO2 51 mmHg (32.0-48.0); PO2 496 mmHg (83-108); Puncture Site Right Radial; pH, Arterial 7.23 (7.35-7.45)
--- NOTE | 2024-11-20 17:07 | PD.RESHP ---
Documentation for date of: 11/20/24 HPI History of Present Illness Chief complaint: Status epilepticus History of present illness: HPI: Patient was intubated at time of assessment. History obtained from chart review. Patient is a 19-year-old male with no past medical history except on anxiety 5 years ago who presented today ground-level fall secondary to seizure-like activity. According to report patient's family found him down to restroom after they heard a loud thud. Stated that patient was found on the floor and describes his body as locked. En route his heart rate was in the 40s and hypotensive with SBP in the 80s also diaphoretic and pale. Paramedics administered 1 atropine and IV fluids however he became combative and pulled out his IV. In the ED his heart rate and blood pressure were within normal limits. Upon questioning by ED physician patient appeared confused, nontoxic. Any medical history he responded seafood. ED course: BP 114/60, pulse 89, RR 16, temp 97.8 F, SpO2 96% on room air. Labs showed WBC 12.6, Hb 15.5, D-dimer 803, pH 7.22, pCO2 52. NA 141, K3.4, bicarb 13.1, anion gap 23, glucose 181, LA 2.4, ammonia 34, CK4 09, TSH 2.6, T46.6. EKG showed sinus rhythm. Rate 89, QTc 439. No acute ST changes Chest CTA showed bibasilar pneumonia. In the ED patient received midazolam 5 mg IV x 1, Keppra 1 g IV x 1, midazolam 2 mg IV x 2, diazepam 5 mg IV x 1, diphenhydramine 50 Mg IV x 1. Patient initially received midazolam 5 mg IV x 1 and Keppra 1 g IV x 1 after which he had a post with which included agitation and confusion. During this time he attempted to pull out his IV and again had a witnessed tonic-clonic seizure. Does want to mg x 2 was again given along with diazepam 5 mg IV x 1 and diphenhydramine. Subsequently decision was made to intubate patient for sedation to arrest his seizure-like activity. Patient will be admitted to the ICU for continuous EEG monitoring midazolam, propofol and ketamine infusion. Neurology, Dr Ye consulted. Appreciate recommendations Review of Systems Review of Systems ROS Unobtainable: unobtainable due to mental status and due to endotracheal tube Past Medical History Past Medical History Comments PMH COMMENT: Past medical history: Nil Medication list: Nil Past surgical history: Unknown Allergies: SHellfish Social history: Patient lives [place] his parents and uses Marijuana ocassionally. Family History: Nil Exam Vital Signs Temp Pulse Resp BP Pulse Ox O2 Del Method O2 Flow Rate 98.7 F 75 24 H 130/78 100 Mechanical Ventilation 100 11/20/24 14:10 11/20/24 17:00 11/20/24 17:00 11/20/24 17:00 11/20/24 17:00 11/20/24 15:50 11/20/24 15:00 FiO2 100 11/20/24 14:56 Narrative Exam Constitutional Intubated and mechanically sedated HEENT PERRL. Patent nares. Trachea midline Respiratory Chest normal on inspection and clear auscultation bilaterally Cardiovascular S1 and S2 audible, RRR. No murmurs carotid bruit. No gross JVD. Abdominal Soft and non tender to palpation in all quadrants. BS + Genitourinary No bladder tenderness, no flank pain. Normal to palpation Musculoskeletal Extremities tone within normal limits. No LE edema. Neurological Intubated and mechanically sedated Skin Warm, dry and intact. No apparent lesions. Results: Labs 11/20/24 12:00 11/20/24 14:10 Labs: Short CBC 11/20/24 Range/Units 12:00 WBC 12.6 H (4.5-11.0) Thou/mm3 Hgb 15.5 (13.5-16.0) g/dL Hct 45.2 (41.0-53.0) % Plt Count 356 (140-440) Thou/mm3 BMP 11/20/24 11/20/24 12:00 14:10 Sodium 141 141 Potassium 3.4 3.5 Chloride 105 107 Carbon Dioxide 13.1 L* 17.7 L BUN 10 9 Creatinine 1.1 1.1 Glucose 181 H 126 H D Calcium 9.7 9.3 Cardiac Enzymes 11/20/24 Range/Units 12:00 Troponin I < 0.002 (0.0-0.045) ng/mL Liver Function 11/20/24 11/20/24 Range/Units 12:00 14:10 Total Bilirubin 1.2 0.8 (0.3-1.2) mg/dL AST 27 26 (0-34) U/L ALT 21 19 (10-49) U/L Alkaline Phosphatase 75 66 (46-116) U/L Albumin 5.0 4.8 (3.5-5.0) gm/dL ABG Interpretation ABG results: 11/20/24 11/20/24 11/20/24 14:10 15:03 15:17 ABG pH 7.22 L 7.31 L ABG pCO2 52 H 43 ABG pO2 35 L* 510 H D ABG HCO3 21 21 ABG O2 Saturation 56 L 101 H ABG Base Excess -7 L -5 L VBG pH 7.22 L VBG pCO2 43 VBG pO2 51 VBG Base Excess -10 L 11/20/24 16:23 ABG pH 7.23 L ABG pCO2 51 H ABG pO2 496 H ABG HCO3 21 ABG O2 Saturation 100 H ABG Base Excess -7 L VBG pH VBG pCO2 VBG pO2 VBG Base Excess Quality Measures Quality Measures none Medications Home Medications and Allergies Home Medications ?Medication ?Instructions ?Recorded ?Confirmed ?Type No Known Home Medications 11/20/24 11/20/24 History Allergies Allergy/AdvReac Type Severity Reaction Status Date / Time shellfish derived Allergy Verified 08/31/19 02:23 Visit Medications Propofol (Diprivan Ivpb) 1,000 mg in 100 mls @ 2.558 mls/hr IV .Q24H PRN; Protocol PRN Reason: PER PROTOCOL Stop: 12/20/24 14:36 Last Titration: 11/20/24 15:50 Dose: 20 mcg/kg/min, 10.233 mls/hr Midazolam HCl (Versed Pf Inj In Ns Premix) 100 mg in 100 mls @ 1 mls/hr IV .Q24H PRN; Protocol PRN Reason: PER PROTOCOL Stop: 11/25/24 15:47 Last Titration: 11/20/24 17:06 Dose: 4 mg/hr, 4 mls/hr Fentanyl Citrate (Sublimaze Inj 2,500 Mcg/250 Ml Bag) 2,500 mcg in 250 mls @ 2.5 mls/hr IV .Q24H PRN; Protocol PRN Reason: PER PROTOCOL Stop: 11/25/24 15:49 Last Admin: 11/20/24 16:23 Dose: 25 mcg/hr, 2.5 mls/hr Discontinued Medications Diazepam (Diazepam Inj 5 Mg/Ml Vial 2 Ml) 5 mg IVP X1 ONE Stop: 11/20/24 14:08 Last Admin: 11/20/24 14:05 Dose: 5 mg Diphenhydramine HCl (Diphenhydramine Inj 50 Mg/Ml Vial) 50 mg IVP X1 ONE Stop: 11/20/24 14:09 Last Admin: 11/20/24 14:13 Dose: 50 mg Etomidate (Etomidate Inj 2 Mg/Ml Vial 10 Ml) 20 mg IVP X1 ONE Stop: 11/20/24 14:34 Last Admin: 11/20/24 14:44 Dose: 20 mg Lactated Ringer's (Lactated Ringers) 1,000 mls @ 999 mls/hr IV .Q1H1M ONE Stop: 11/20/24 13:05 Last Infusion: 11/20/24 14:24 Dose: Infused Lactated Ringer's (Lactated Ringers) 1,000 mls @ 999 mls/hr IV .Q1H1M ONE Stop: 11/20/24 14:34 Last Infusion: 11/20/24 16:20 Dose: Infused Levetiracetam (Levetiracetam Inj 100 Mg/Ml Vial 5ml) 1,000 mg IVP X1 ONE Stop: 11/20/24 12:05 Last Admin: 11/20/24 13:22 Dose: 1,000 mg Midazolam HCl (Midazolam Inj 1 Mg/Ml Vial 2 Ml) 5 mg IVP X1 ONE Stop: 11/20/24 13:01 Last Admin: 11/20/24 13:04 Dose: 5 mg Midazolam HCl (Midazolam Inj 1 Mg/Ml Vial 2 Ml) 2 mg IVP X1 ONE Stop: 11/20/24 13:43 Last Admin: 11/20/24 13:46 Dose: 2 mg Midazolam HCl (Midazolam Inj 1 Mg/Ml Vial 2 Ml) 2 mg IVP X1 ONE Stop: 11/20/24 13:54 Last Admin: 11/20/24 13:55 Dose: 2 mg Midazolam HCl (Midazolam Inj 1 Mg/Ml Vial 2 Ml) 5 mg IVP X1 ONE Stop: 11/20/24 16:20 Last Admin: 11/20/24 16:18 Dose: 5 mg Rocuronium [place] (Rocuronium Inj 10 Mg/Ml Vial 10 Ml) 75 mg IVP X1 ONE Stop: 11/20/24 14:34 Last Admin: 11/20/24 14:45 Dose: 75 mg Rocuronium [place] (Rocuronium Inj 10 Mg/Ml Vial 10 Ml) 50 mg IVP X1 ONE Stop: 11/20/24 16:14 Last Admin: 11/20/24 16:16 Dose: 50 mg Assessment & Plan Plan Patient is a 19-year-old male with no past medical history except on anxiety 5 years ago who presented today ground-level fall secondary to seizure-like activity. Patient will be admitted to the ICU for continuous EEG monitoring midazolam, propofol and ketamine infusion. NEURO Acute metabolic encephalopathy secondary to Status epilecticus Chemical Sedation DDx: Drug overdose, status epilepticus, viral encephalitis Dx: - Witnessed tonic-clonic seizure in ED - CK 405, Lactate 2.4 Rx: - Continuous EEG monitoring - Sedation with Fentanyl, Propofol, midazolam and Ketamine to maintain a RASS -2 - Nuerology, Dr. Ye consulted. Appreciate recommendations RRX: - Titrate as necessary and attempt SAT tomorrow CVS Nil Acute PULM Intubation for airway protection secondary to status epilepticus Rx: - ACVC RRX: - Wean FiO2 as tolerated. For SBT once seizure free and passes SAT GI/Hep Tube Feeds: - 25 cc/hour with 30cc/hour water flushes RENAL Elevated CK DDx: Seizure Dx: - CK 405 Rx: -Received 3 L RL IVF bolus HEME/ONC Nil acute ENDO Nil acute ID Nil acute MSK/DERM Nil acute ICU Health maintenance: Dispo: Admit to ICU for sedation secondary to status epilepticus Diet: TUbe feeds via OGT DVT ppx: Heparin GI ppx: Protonix 40mg qD Mechanical ventilattion: Yes, Mode: ACVC Sedation: Yes, Fentanyl,Propofol,Midazolam, Ketamine (RAAS - 2) IV lines: 2 pIV Central line: No Arterial line: No [place]: Yes (11/20 Code status: FULL CODE Plan of care discussed with Attending Dr. Brendan Block MD PGY 2 Disclaimer: This note was dictated by speech recognition. Minor errors in project eng may be present due to voice recognition software.
--- NOTE | 2024-11-20 17:11 | XR_ITS ---
Examination: Shoulder,right, 3 views Technique: Shoulder AP internal rotation, AP external rotation, Y view shoulder, 3 views Exam date and time :November 20, 2024 1709 hrs. Indications: Right shoulder pain today, post injury of the shoulder Findings: No shoulder fracture or dislocation No foreign body Y view is technically limited Impression: No fracture or dislocation No significant arthritic change
[2024-11-20] MEDS: PROPOFOL INJ 10 MG/ML VIAL 20 ML 50 MG IV (17:28)
[2024-11-20 18:02] LABS: Base Excess -3 (-3-3); HCO3 23 mEq/L (20-26); Inspired Oxygen, FIO2 50 %; O2 Saturation 100 % (91-98); PCO2 42 mmHg (32.0-48.0); PO2 219 mmHg (83-108); pH, Arterial 7.34 (7.35-7.45)
[2024-11-20 18:03] LABS: Allen Test Performed/OK; Puncture Site Right Radial
[2024-11-20 18:37] LABS: Lactate (Lactic Acid) 2.4 mMol/L (0.4-2.0)
[2024-11-20] MEDS: HEPARIN SOD INJ 5000 UNIT/ML VIAL SC (18:56)
[2024-11-20 19:01] LABS: Creatine Kinase 409 U/L (34-171)
--- NOTE | 2024-11-20 20:31 | PD.RESCONSUL ---
HPI Data of Consult Requesting Physician: Juan Block MD Admitting Provider: Juan Block MD Attending Provider: Juan Block MD Primary Care Provider: Physician No Primary/Family Consult Narrative Reason for consult: status epilepticus History of present illness: This patient is a 19-year-old male with no significant past medical history presented the ED on 11/20/2024 with chief complaint of confusion and falling of during shower. Patient's history is limited and was taken from ED physician. She stated that patient's baseline is AO x 3 and felt confused and fell off. Patient's family brought him to the ER. There was a witnessed status epilepticus noted during ED assessment. Patient had a prolonged postictal phase lasting for more than 30 minutes. Patient was given Versed and Keppra loading dose initially to control seizure activity however patient continued to be combative therefore additional dose of Versed 2 mg x 2 and diazepam 5 mg x 1 and Benadryl 50 mg IV x [address]. Eventually due to neurological status, patient was intubated and is on sedation with propofol.. According to EMS, patient's blood pressure was in 80s systolic and he was bradycardic. Patient was given atropine to increase his heart rate. No hypotension or bradycardic episode noted in the ER. Labs revealed mildly elevated white count 12.6, hemoglobin 15.5, platelet 356. Coagulation panel showed D-dimer 803. ABGs initial revealed pH 7.22, pCO2 52, pO2 35. Bicarb 21. Chemistry panel revealed sodium 141, potassium 3.5, chloride 107, bicarb 17.7. initial anion gap was elevated at 23 with bicarb 13.1 down trended to 16 along with bicarb 17.7. Kidney functions showed BUN 9 and creatinine 1.1. Blood glucose 126. Ammonia 34. TSH and thyroxine normal. U tox only positive for marijuana. Salicylates were negative. Blood alcohol level negative. Tylenol levels negative. EKG showed sinus rhythm with QTc 439. CT brain pending to rule out bleed.Chest x-ray negative for aspiration pneumonia. Vitals revealed blood pressure 139/81, heart rate 88. Afebrile. Patient is on mechanical ventilation. Admitted for workup of seizures. Past medical history: Not significant PSH: Unknown SH: Unknown, Smokes marijuana Allergies: Shellfish derived Home medications: None Recommended to continue keppra 500 mg BID and will follow up with extended EEG awake and drowsy. Hold off on vimpat. contine with sedation with propofol. Close monitoring of heart rate and blood pressure. cc:: cc: Juan Block MD Review of Systems Review of Systems ROS Unobtainable: unobtainable due to medical condition and due to endotracheal tube Past Medical History Past Medical History NEUROLOGIC: Negative Neurological Disorders CARDIAC: Negative Cardiac Disorders GENITOURINARY: Negative Renal Disease Social History SMOKING STATUS: Unknown if ever smoked SUBSTANCE USE: marijuana (First time today. ) Exam Vital Signs Temp Pulse Resp BP Pulse Ox O2 Del Method O2 Flow Rate 97.9 F 56 L 24 H 110/60 100 Mechanical Ventilation 100 11/20/24 17:38 11/20/24 18:30 11/20/24 17:38 11/20/24 18:30 11/20/24 18:30 11/20/24 17:38 11/20/24 15:00 FiO2 35 11/20/24 18:24 Narrative Exam GENERAL APPEARANCE: Patient is intubated and mechanically ventilated. HEENT: NC, AT. MMM. EOMI, clear conjunctiva, oropharynx clear. NECK: Supple without lymphadenopathy. No stiffness or restricted ROM. HEART: sinus bradycardia with regular rhythm, normal S1/S2, no m/r/g LUNGS: CTAB, moving air well. No crackles or wheezes are heard. ABDOMEN: Soft, nontender, nondistended with good bowel sounds heard. BACK: No CVAT, no obvious deformity. EXTREMITIES: Without cyanosis, clubbing or edema. NEUROLOGICAL: Grossly nonfocal. Limited due to sedation. CN not formally tested but appear grossly intact. Skin: Warm and dry without any rash. Psych: unable to assess Results Labs 11/22/24 05:20 11/22/24 05:20 Labs: Short CBC 11/20/24 Range/Units 12:00 WBC 12.6 H (4.5-11.0) Thou/mm3 Hgb 15.5 (13.5-16.0) g/dL Hct 45.2 (41.0-53.0) % Plt Count 356 (140-440) Thou/mm3 BMP 11/20/24 11/20/24 12:00 14:10 Sodium 141 141 Potassium 3.4 3.5 Chloride 105 107 Carbon Dioxide 13.1 L* 17.7 L BUN 10 9 Creatinine 1.1 1.1 Glucose 181 H 126 H D Calcium 9.7 9.3 Cardiac Enzymes 11/20/24 11/20/24 Range/Units 12:00 18:29 Total Creatine Kinase 409 H (34-171) U/L Troponin I < 0.002 (0.0-0.045) ng/mL Liver Function 11/20/24 11/20/24 Range/Units 12:00 14:10 Total Bilirubin 1.2 0.8 (0.3-1.2) mg/dL AST 27 26 (0-34) U/L ALT 21 19 (10-49) U/L Alkaline Phosphatase 75 66 (46-116) U/L Albumin 5.0 4.8 (3.5-5.0) gm/dL ABG Interpretation ABG results: 11/20/24 11/20/24 11/20/24 14:10 15:03 15:17 ABG pH 7.22 L 7.31 L ABG pCO2 52 H 43 ABG pO2 35 L* 510 H D ABG HCO3 21 21 ABG O2 Saturation 56 L 101 H ABG Base Excess -7 L -5 L VBG pH 7.22 L VBG pCO2 43 VBG pO2 51 VBG Base Excess -10 L 11/20/24 11/20/24 16:23 17:56 ABG pH 7.23 L 7.34 L D ABG pCO2 51 H 42 ABG pO2 496 H 219 H D ABG HCO3 21 23 ABG O2 Saturation 100 H 100 H ABG Base Excess -7 L -3 VBG pH VBG pCO2 VBG pO2 VBG Base Excess Quality Measures Quality Measures VTE prophylaxis (Heparin SC ) Medications Home Medications and Allergies Home Medications ?Medication ?Instructions ?Recorded ?Confirmed ?Type No Known Home Medications 11/20/24 11/20/24 History Allergies Allergy/AdvReac Type Severity Reaction Status Date / Time Fish Containing Products Allergy Verified 11/21/24 12:53 shellfish derived Allergy Verified 11/21/24 12:53 Visit Medications Acetaminophen (Acetaminophen 325 Mg Tablet) 650 mg PO Q4HR PRN PRN Reason: Pain Scale 1-10 or Temp >100 Stop: 12/20/24 17:06 Haloperidol Lactate (Haloperidol Lact Inj 5 Mg/Ml Vial) 5 mg IV Q6HR PRN PRN Reason: AGITATION (SEVERE) Stop: 11/25/24 18:04 Heparin Sodium (Porcine) (Heparin Sod Inj 5000 Unit/Ml Vial) 5,000 unit SC Q8HR HANNA Stop: 12/04/24 17:14 Last Admin: 11/20/24 18:56 Dose: 5,000 unit Propofol (Diprivan Ivpb) 1,000 mg in 100 mls @ 2.558 mls/hr IV .Q24H PRN; Protocol PRN Reason: PER PROTOCOL Stop: 12/20/24 14:36 Last Titration: 11/20/24 18:00 Dose: 50 mcg/kg/min, 25.583 mls/hr Midazolam HCl (Versed Pf Inj In Ns Premix) 100 mg in 100 mls @ 1 mls/hr IV .Q24H PRN; Protocol PRN Reason: PER PROTOCOL Stop: 11/25/24 15:47 Last Titration: 11/20/24 18:00 Dose: 10 mg/hr, 10 mls/hr Fentanyl Citrate (Sublimaze Inj 2,500 Mcg/250 Ml Bag) 2,500 mcg in 250 mls @ 2.5 mls/hr IV .Q24H PRN; Protocol PRN Reason: PER PROTOCOL Stop: 11/25/24 15:49 Last Titration: 11/20/24 18:00 Dose: 300 mcg/hr, 30 mls/hr Ketamine HCl 500 mg/ Sodium (Chloride) 250 mls @ 31.978 mls/hr IV .Q7H50M PRN; Protocol PRN Reason: PER PROTOCOL Stop: 12/20/24 18:09 Magnesium Hydroxide (Milk Of Magnesia Susp 30 Ml Udc) 30 ml PO QDAY PRN PRN Reason: CONSTIPATION Stop: 12/20/24 17:06 Discontinued Medications Diazepam (Diazepam Inj 5 Mg/Ml Vial 2 Ml) 5 mg IVP X1 ONE Stop: 11/20/24 14:08 Last Admin: 11/20/24 14:05 Dose: 5 mg Diphenhydramine HCl (Diphenhydramine Inj 50 Mg/Ml Vial) 50 mg IVP X1 ONE Stop: 11/20/24 14:09 Last Admin: 11/20/24 14:13 Dose: 50 mg Etomidate (Etomidate Inj 2 Mg/Ml Vial 10 Ml) 20 mg IVP X1 ONE Stop: 11/20/24 14:34 Last Admin: 11/20/24 14:44 Dose: 20 mg Lactated Ringer's (Lactated Ringers) 1,000 mls @ 999 mls/hr IV .Q1H1M ONE Stop: 11/20/24 13:05 Last Infusion: 11/20/24 14:24 Dose: Infused Lactated Ringer's (Lactated Ringers) 1,000 mls @ 999 mls/hr IV .Q1H1M ONE Stop: 11/20/24 14:34 Last Infusion: 11/20/24 16:20 Dose: Infused Lactated Ringer's (Lactated Ringers) 1,000 mls @ 999 mls/hr IV .Q1H1M ONE Stop: 11/20/24 19:11 Last Admin: 11/20/24 18:50 Dose: 999 mls/hr Lacosamide (Lacosamide Inj 200 Mg/20 Ml Vial) 200 mg IVP X1 ONE Stop: 11/20/24 17:29 Last Admin: 11/20/24 18:49 Dose: Not Given Levetiracetam (Levetiracetam Inj 100 Mg/Ml Vial 5ml) 1,000 mg IVP X1 ONE Stop: 11/20/24 12:05 Last Admin: 11/20/24 13:22 Dose: 1,000 mg Midazolam HCl (Midazolam Inj 1 Mg/Ml Vial 2 Ml) 5 mg IVP X1 ONE Stop: 11/20/24 13:01 Last Admin: 11/20/24 13:04 Dose: 5 mg Midazolam HCl (Midazolam Inj 1 Mg/Ml Vial 2 Ml) 2 mg IVP X1 ONE Stop: 11/20/24 13:43 Last Admin: 11/20/24 13:46 Dose: 2 mg Midazolam HCl (Midazolam Inj 1 Mg/Ml Vial 2 Ml) 2 mg IVP X1 ONE Stop: 11/20/24 13:54 Last Admin: 11/20/24 13:55 Dose: 2 mg Midazolam HCl (Midazolam Inj 1 Mg/Ml Vial 2 Ml) 5 mg IVP X1 ONE Stop: 11/20/24 16:20 Last Admin: 11/20/24 16:18 Dose: 5 mg Midazolam HCl (Midazolam Inj 1 Mg/Ml Vial 2 Ml) 5 mg IVP X1 ONE Stop: 11/20/24 17:23 Last Admin: 11/20/24 17:28 Dose: 5 mg Propofol (Propofol Inj 10 Mg/Ml Vial 20 Ml) 50 mg IV X1 ONE Stop: 11/20/24 17:23 Last Admin: 11/20/24 17:28 Dose: 50 mg Rocuronium [place] (Rocuronium Inj 10 Mg/Ml Vial 10 Ml) 75 mg IVP X1 ONE Stop: 11/20/24 14:34 Last Admin: 11/20/24 14:45 Dose: 75 mg Rocuronium [place] (Rocuronium Inj 10 Mg/Ml Vial 10 Ml) 50 mg IVP X1 ONE Stop: 11/20/24 16:14 Last Admin: 11/20/24 16:16 Dose: 50 mg Assessment & Plan Plan This patient is a 19-year-old male with no known medical history presented with confusion and had a grand mal seizure in the ER. Patient was intubated and mechanically ventilated due to ongoing persistent seizure/mentation. Admitted for seizure workup. #Grand mal seizure #Ground-level fall ? Patient presented with confusion and grand mal seizure while in ER. According to EMS, patient's blood pressure was in 80s systolic and he was bradycardic. Patient was given atropine to increase his heart rate. No hypotension or bradycardic episode noted in the ER. Postictal phase lasting more than 30 minutes. Vitals were unremarkable. Labs were insignificant with only mild elevation in the white count. CT brain pending. Chest x-ray negative for aspiration. EKG showed sinus rhythm with QTc 439. CT brain without contrast was negative for hemorrhage or ischemia. Shoulder XR was negative Loading dose of keppra was given Plan -Continue Keppra 500 mg BID and hold off on vimpat -Follow-up with extended EEG awake and drowsy -Continue sedation with Propofol, ketamine and fentanyl - Close monitoring of heart rate and Blood pressure - Seizure precautions and aspiration precaution - Follow-up with blood work #Possible Aspiration Pneumonia per CT finding #Lactic acidosis #Anion gap metabolic acidosis #Marijuana use Rest of the management as per ICU team. Plan of care discussed with neurologist, Dr Ephraim Foley MD PGY3 Attending Provider Attestation/Addendum I have seen and examined the patient at the bedside and I agreed with the resident's findings, assessment and plan of care. Patient with new onset seizures without any risk factors. Loaded with Keppra in the ER, on propofol, Versed and fentanyl to keep him intubated and remain on ventilator. Follow with extended EEG monitoring and MRI brain with and without contrast. Will continue with maintenance dose of Keppra 500 mg twice a day.
[2024-11-20 21:36] LABS: Reflex Lactate? Y
--- NOTE | 2024-11-20 22:05 | PC.RT ---
assist with pt tranfered to ICU with [facility] pineda, without complications, refer to RNs notes.
[2024-11-20] MEDS: PROPOFOL 1,000 MG IVPB 1,000 MG/100 ML VIAL 12.791 MG IV (22:36)
[2024-11-20 22:46] LABS: Lactic Acid, 3 HR 1.8 mMol/L (0.4-2.0)
--- NOTE | 2024-11-20 23:00 | PC.NURSE ---
clarified tube feeding orders (d/c'd after ordered) with Dr Veras per MD do not start
[2024-11-21] VITALS (59 sets, daily range): BP systolic 91–142; BP diastolic 43–87; PULSE 44–93; RESP 9–98; TEMP 36.6–39.1; O2SAT 97–100
[2024-11-21] MEDS: MIDAZOLAM/NS 100 MG IVPB 100 MG/100 ML BAG 8 MG IV (01:04)
[2024-11-21] MEDS: fentaNYL 2,500 MCG/250 ML BAG 2,500 MCG/250 ML BAG 30 MCG IV (01:07)
--- NOTE | 2024-11-21 03:17 | RESP.EEG ---
Extended EEG started 11/21/24@0030.
[2024-11-21 04:39] LABS: Base Excess 0 (-3-3); HCO3 23 mEq/L (20-26); Inspired Oxygen, FIO2 35 %; O2 Saturation 100 % (91-98); PCO2 33 mmHg (32.0-48.0); PO2 163 mmHg (83-108); pH, Arterial 7.46 (7.35-7.45)
[2024-11-21 04:42] LABS: Allen Test Performed/OK; Puncture Site Right Radial
--- NOTE | 2024-11-21 05:00 | XR_ITS ---
Examination: AP chest single view Technique one AP portable semiupright chest single view Date and time: November 21, 2024, 0501 hrs., Comparison November 20, 2024 Indications: Coughing congestion today. Findings: Tracheal tube tip 4.2 cm above damaris. Orogastric tube in the stomach. No aspiration pneumonia. Prominent osteopenia Impression: No aspiration pneumonia
[2024-11-21] MEDS: HEPARIN SOD INJ 5000 UNIT/ML VIAL SC (05:16)
[2024-11-21 05:19] LABS: Basophils # (Auto) 0.0 Thou/mm3 (0.0-0.2); Basophils % (Auto) 0 % (0-2.5); Eosinophils # (Auto) 0.0 Thou/mm3 (0.0-0.5); Eosinophils % (Auto) 0 % (0-10); Hematocrit 38.1 % (41.0-53.0); Hemoglobin 13.5 g/dL (13.5-16.0); Immature Granulocytes Auto 0.03 Thou/mm3 (0.00-0.00); Lymphocytes # (Auto) 2.3 Thou/mm3 (1.0-4.8); Lymphocytes % (Auto) 18 % (10-50); Mean Corpuscular HGB Conc 35.4 g/dl (31.0-37.0); Mean Corpuscular Hemoglobin 31.6 pg (25.0-35.0); Mean Corpuscular Volume 89 fL (80-100); Monocytes # (Auto) 1.3 Thou/mm3 (0.0-0.8); Monocytes % (Auto) 10 % (0-12); Neutrophils # (Auto) 9.0 Thou/mm3 (1.8-7.7); Neutrophils % (Auto) 71 % (37-80); Nucleated Red Blood Cell # 0.00 Thou/mm3 (0.00-0.00); Nucleated Red Blood Cell % 0 /100 WBC (0); Platelet Count 256 Thou/mm3 (140-440); RDW Standard Deviation 39.4 fL (35.1-43.9); Red Blood Count 4.27 Miln/mm3 (4.50-5.90); White Blood Count 12.8 Thou/mm3 (4.5-11.0)
[2024-11-21 06:07] LABS: Alanine Aminotransferase 17 U/L (10-49); Albumin, Serum 4.2 gm/dL (3.5-5.0); Albumin/Globulin Ratio 1.9 (1.2-2.2); Alkaline Phosphatase 54 U/L (46-116); Anion Gap 12 (7-16); Aspartate Amino Transferase 27 U/L (0-34); BUN/Creatinine Ratio 7 Ratio (12-20); Bilirubin,Total 1.6 mg/dL (0.3-1.2); Blood Urea Nitrogen 7 mg/dL (9-23); Calcium 9.5 mg/dL (8.3-10.6); Calcium (Corrected) 9.5 mg/dL (8.5-10.1); Carbon Dioxide 22.2 mMol/L (20.0-31.0); Chloride 111 mMol/L (98-107); Creatine Kinase 360 U/L (34-171); Creatinine (Component) 1.0 mg/dL (0.6-1.3); Estimated Creatinine Clearance 121.7 mL/min (>60); Globulin 2.2 gm/dL (2.3-3.5); Glucose 94 mg/dL (74-106); Osmolality,Calculated 286 (275-295); Potassium 3.8 mMol/L (3.4-5.1); Sodium 145 mMol/L (136-145); Total Protein 6.4 gm/dL (5.7-8.2); eGFR > 60 See Note
[2024-11-21] MEDS: levETIRAcetam INJ 100 MG/ML VIAL 5ML 500 MG IVP ×2 (09:22→21:27)
--- NOTE | 2024-11-21 09:50 | RESP.EEG ---
Continious EEG still in place, checked at this time
--- NOTE | 2024-11-21 11:13 | ESPR_ITS ---
Documentation for date of: 11/21/24 Subjective Subjective Interval history: 19yo M admitted yesterday for status epilepticus yesterday. He was intubated in the ER. He was started on propofol, versed, fentanyl with prn haldol and ketamine. He was placed on a continuos EEG. On arrival to the ICU there were no further sz activity episodes noted. He has done well overnight and this morning he is awake and able to follow commands. He has been titrated off all sedation. He will be transitioned to PSV and eval for poss extubation today. He is afebrile with good UOP. Critical Care Note Critical care time (min.): 45 Exam Vital Signs Temp Pulse Resp BP Pulse Ox O2 Del Method O2 Flow Rate 98.0 F 74 18 135/84 H 99 Mechanical Ventilation 2 11/21/24 07:00 11/21/24 10:05 11/21/24 10:05 11/21/24 09:45 11/21/24 10:05 11/21/24 07:00 11/21/24 10:05 FiO2 35 11/21/24 08:00 Narrative Exam Gen- NAD, intubated, off sedation, follows commands, resting comfortably HEENT- NC/AT, mucosa hydrated, sclera anicteric, EOMI, ETT/OGT in place Chest- LCTAB, HRRR, no increase in WOB Abd- s/nt/bs+ Ext- no edema, pulses palp, no clubbing, no mottling, moves all 4 Vent PSV Physical Exam Completion Physical Exam Complete?: Yes Objective - Line Installer Labs 11/21/24 04:45 11/21/24 04:45 Labs: Laboratory Results - last 24 hr 11/20/24 11/20/24 11/20/24 12:00 13:11 14:10 WBC 12.6 H RBC 4.94 Hgb 15.5 Hct 45.2 MCV 92 MCH 31.4 MCHC 34.3 RDW Std Deviation 40.2 Plt Count 356 Neut % (Auto) 50 Lymph % (Auto) 39 [place] % (Auto) 5 Eos % (Auto) 1 Baso % (Auto) 0 Neut # (Auto) 6.3 Lymph # (Auto) 4.9 H [place] # (Auto) 0.7 Eos # (Auto) 0.1 Baso # (Auto) 0.1 Immature Gran # (Auto) 0.53 H Absolute Nucleated RBC 0.00 Immature Gran % 4 H Nucleated RBC % 0 D-Dimer 803 H Puncture Site ABG pH ABG pCO2 ABG pO2 ABG HCO3 ABG O2 Saturation ABG Base Excess VBG pH 7.22 L VBG pCO2 43 VBG pO2 51 VBG O2 Sat (Abisai) 80 L VBG Base Excess -10 L FiO2 Sodium 141 141 Potassium 3.4 3.5 Chloride 105 107 Carbon Dioxide 13.1 L* 17.7 L Anion Gap 23 H 16 BUN 10 9 Creatinine 1.1 1.1 Estim Creat Clear Calc 110.6 110.6 eGFR > 60 > 60 BUN/Creatinine Ratio 9 L 8 L Glucose 181 H 126 H D Calculated Osmolality 285 281 Lactic Acid Calcium 9.7 9.3 Corrected Calcium 9.7 9.3 Total Bilirubin 1.2 0.8 AST 27 26 ALT 21 19 Alkaline Phosphatase 75 66 Ammonia 34 H Total Creatine Kinase Troponin I < 0.002 Total Protein 7.7 7.2 Albumin 5.0 4.8 Globulin 2.7 2.4 Albumin/Globulin Ratio 1.9 2.0 TSH 2.16 Thyroxine (T4) 6.6 Salicylates < 3.0 Urine Opiates Screen Negative Urine Fentanyl Screen Negative Acetaminophen < 2.0 L Ur Barbiturates Screen Negative U Amphetamin/Meth Scrn Negative U Benzodiazepines Scrn Negative U Cocaine Metab Screen Negative U Marijuana (THC) Screen Positive A Ethyl Alcohol < 3.0 11/20/24 11/20/24 11/20/24 15:03 15:17 16:23 WBC RBC Hgb Hct MCV MCH MCHC RDW Std Deviation Plt Count Neut % (Auto) Lymph % (Auto) [place] % (Auto) Eos % (Auto) Baso % (Auto) Neut # (Auto) Lymph # (Auto) [place] # (Auto) Eos # (Auto) Baso # (Auto) Immature Gran # (Auto) Absolute Nucleated RBC Immature Gran % Nucleated RBC % D-Dimer Puncture Site Right Radial Right Radial Right Radial ABG pH 7.22 L 7.31 L 7.23 L ABG pCO2 52 H 43 51 H ABG pO2 35 L* 510 H D 496 H ABG HCO3 21 21 21 ABG O2 Saturation 56 L 101 H 100 H ABG Base Excess -7 L -5 L -7 L VBG pH VBG pCO2 VBG pO2 VBG O2 Sat (Abisai) VBG Base Excess FiO2 100 100 100 Sodium Potassium Chloride Carbon Dioxide Anion Gap BUN Creatinine Estim Creat Clear Calc eGFR BUN/Creatinine Ratio Glucose Calculated Osmolality Lactic Acid Calcium Corrected Calcium Total Bilirubin AST ALT Alkaline Phosphatase Ammonia Total Creatine Kinase Troponin I Total Protein Albumin Globulin Albumin/Globulin Ratio TSH Thyroxine (T4) Salicylates Urine Opiates Screen Urine Fentanyl Screen Acetaminophen Ur Barbiturates Screen U Amphetamin/Meth Scrn U Benzodiazepines Scrn U Cocaine Metab Screen U Marijuana (THC) Screen Ethyl Alcohol 11/20/24 11/20/24 11/20/24 17:56 18:29 22:29 WBC RBC Hgb Hct MCV MCH MCHC RDW Std Deviation Plt Count Neut % (Auto) Lymph % (Auto) [place] % (Auto) Eos % (Auto) Baso % (Auto) Neut # (Auto) Lymph # (Auto) [place] # (Auto) Eos # (Auto) Baso # (Auto) Immature Gran # (Auto) Absolute Nucleated RBC Immature Gran % Nucleated RBC % D-Dimer Puncture Site Right Radial ABG pH 7.34 L D ABG pCO2 42 ABG pO2 219 H D ABG HCO3 23 ABG O2 Saturation 100 H ABG Base Excess -3 VBG pH VBG pCO2 VBG pO2 VBG O2 Sat (Abisai) VBG Base Excess FiO2 50 Sodium Potassium Chloride Carbon Dioxide Anion Gap BUN Creatinine Estim Creat Clear Calc eGFR BUN/Creatinine Ratio Glucose Calculated Osmolality Lactic Acid 2.4 H 1.8 Calcium Corrected Calcium Total Bilirubin AST ALT Alkaline Phosphatase Ammonia Total Creatine Kinase 409 H Troponin I Total Protein Albumin Globulin Albumin/Globulin Ratio TSH Thyroxine (T4) Salicylates Urine Opiates Screen Urine Fentanyl Screen Acetaminophen Ur Barbiturates Screen U Amphetamin/Meth Scrn U Benzodiazepines Scrn U Cocaine Metab Screen U Marijuana (THC) Screen Ethyl Alcohol 11/21/24 11/21/24 04:32 04:45 WBC 12.8 H RBC 4.27 L Hgb 13.5 D Hct 38.1 L MCV 89 MCH 31.6 MCHC 35.4 RDW Std Deviation 39.4 Plt Count 256 D Neut % (Auto) 71 Lymph % (Auto) 18 [place] % (Auto) 10 Eos % (Auto) 0 Baso % (Auto) 0 Neut # (Auto) 9.0 H Lymph # (Auto) 2.3 [place] # (Auto) 1.3 H Eos # (Auto) 0.0 Baso # (Auto) 0.0 Immature Gran # (Auto) 0.03 H Absolute Nucleated RBC 0.00 Immature Gran % 0 Nucleated RBC % 0 D-Dimer Puncture Site Right Radial ABG pH 7.46 H D ABG pCO2 33 ABG pO2 163 H D ABG HCO3 23 ABG O2 Saturation 100 H ABG Base Excess 0 VBG pH VBG pCO2 VBG pO2 VBG O2 Sat (Abisai) VBG Base Excess FiO2 35 Sodium 145 Potassium 3.8 Chloride 111 H Carbon Dioxide 22.2 Anion Gap 12 BUN 7 L Creatinine 1.0 Estim Creat Clear Calc 121.7 eGFR > 60 BUN/Creatinine Ratio 7 L Glucose 94 Calculated Osmolality 286 Lactic Acid Calcium 9.5 Corrected Calcium 9.5 Total Bilirubin 1.6 H D AST 27 ALT 17 Alkaline Phosphatase 54 Ammonia Total Creatine Kinase 360 H D Troponin I Total Protein 6.4 Albumin 4.2 D Globulin 2.2 L Albumin/Globulin Ratio 1.9 TSH Thyroxine (T4) Salicylates Urine Opiates Screen Urine Fentanyl Screen Acetaminophen Ur Barbiturates Screen U Amphetamin/Meth Scrn U Benzodiazepines Scrn U Cocaine Metab Screen U Marijuana (THC) Screen Ethyl Alcohol Assessment & Plan Additional Plan Additional Plan: In brief this is a 19yo M intubated for acute resp failure 2/2 status epilepticus a/p [facility] Sz- no active sz today - on keppra - neuro eval appreciated - EEG in place Substance use- Utox pos for marijuana CV stable Resp Acute Resp Failure- 2/2 status epilepticus and need for sedation - this AM on PSV and doing well - obtain weening parameters and extubate as able Renal AGMA- 2/2 LA from sz activity Mild rhabdo- 2/2 sz GI GI proph- PPI Endo stable Heme Leukocytosis- likely reactive in nature ID stable case d/w ICU team labs, imaging, records reviewed ~45ccmin required for eval, exam, review, intervention, discussion and formulation of POC for this critically ill pt with acute resp failure on MV Provider Notation Provider Notation: Although this document has been carefully reviewed, there may still be some phonetic and other typographical errors. These errors are purely grammatical due to imperfections in the software program and should not be construed in any way to compromise the substance of the patient's medical care during this visit. Thank you for the opportunity and privilege in assisting you with this patient's care and management.
--- NOTE | 2024-11-21 11:19 | ESPR_ITS ---
Documentation for date of: 11/21/24 Subjective Subjective Interval history: Patient was intubated at time of assessment. History obtained from chart review. Patient is a 19-year-old male with no past medical history except on anxiety 5 years ago who presented today ground-level fall secondary to seizure-like activity. According to report patient's family found him down to restroom after they heard a loud thud. Stated that patient was found on the floor and describes his body as locked. En route his heart rate was in the 40s and hypotensive with SBP in the 80s also diaphoretic and pale. Paramedics administered 1 atropine and IV fluids however he became combative and pulled out his IV. In the ED his heart rate and blood pressure were within normal limits. Upon questioning by ED physician patient appeared confused, nontoxic. Any medical history he responded seafood. ED course: BP 114/60, pulse 89, RR 16, temp 97.8 F, SpO2 96% on room air. Labs showed WBC 12.6, Hb 15.5, D-dimer 803, pH 7.22, pCO2 52. NA 141, K3.4, bicarb 13.1, anion gap 23, glucose 181, LA 2.4, ammonia 34, CK4 09, TSH 2.6, T46.6. EKG showed sinus rhythm. Rate 89, QTc 439. No acute ST changes Chest CTA showed bibasilar pneumonia. In the ED patient received midazolam 5 mg IV x 1, Keppra 1 g IV x 1, midazolam 2 mg IV x 2, diazepam 5 mg IV x 1, diphenhydramine 50 Mg IV x 1. Patient initially received midazolam 5 mg IV x 1 and Keppra 1 g IV x 1 after which he had a post with which included agitation and confusion. During this time he attempted to pull out his IV and again had a witnessed tonic-clonic seizure. Does want to mg x 2 was again given along with diazepam 5 mg IV x 1 and diphenhydramine. Subsequently decision was made to intubate patient for sedation to arrest his seizure-like activity. Patient will be admitted to the ICU for continuous EEG monitoring midazolam, propofol and ketamine infusion. Neurology, Dr Ye consulted. Appreciate recommendations 11/21/2024: Overnight patient had no events. Sedation was weaned to only low- dose fentanyl midazolam which were completely turned off at 7:45 AM today. This a.m. patient is alert and responding to commands although still intubated. Labs showed NA 145, K3.8, CK4 09?>360, pH 1.46, pCO2 43. Will attempt SBT today and once successful extubate patient. Continue EEG monitoring until midnight for a total of 24 hours. Continue Keppra 500 mg IV twice daily as per neurology recommendations. At this point patient clinically stable for downgrade to telemetry. Exam Vital Signs Temp Pulse Resp BP Pulse Ox O2 Del Method O2 Flow Rate 98.0 F 74 18 135/84 H 99 Mechanical Ventilation 2 11/21/24 07:00 11/21/24 10:05 11/21/24 10:05 11/21/24 09:45 11/21/24 10:05 11/21/24 07:00 11/21/24 10:05 FiO2 35 11/21/24 08:00 Narrative Exam Constitutional Alert, oriented x 3 and comfortable. HEENT Vision grossly intact. Patent nares. Trachea midline Respiratory Chest normal on inspection and clear auscultation bilaterally Cardiovascular S1 and S2 audible, RRR. No murmurs carotid bruit. No gross JVD. Abdominal Soft and non tender to palpation in all quadrants. BS + Genitourinary No bladder tenderness, no flank pain. Normal to palpation Musculoskeletal Extremities tone within normal limits. No LE edema. Neurological CN II - XII grossly intact. Extremity motor and sensation grossly intact. Skin Warm, dry and intact. No apparent lesions. Psychiatric Patient has good affect, is cooperative Objective Labs 11/21/24 04:45 11/21/24 04:45 Labs: Laboratory Results - last 24 hr 11/20/24 11/20/24 11/20/24 12:00 13:11 14:10 WBC 12.6 H RBC 4.94 Hgb 15.5 Hct 45.2 MCV 92 MCH 31.4 MCHC 34.3 RDW Std Deviation 40.2 Plt Count 356 Neut % (Auto) 50 Lymph % (Auto) 39 Izard % (Auto) 5 Eos % (Auto) 1 Baso % (Auto) 0 Neut # (Auto) 6.3 Lymph # (Auto) 4.9 H Izard # (Auto) 0.7 Eos # (Auto) 0.1 Baso # (Auto) 0.1 Immature Gran # (Auto) 0.53 H Absolute Nucleated RBC 0.00 Immature Gran % 4 H Nucleated RBC % 0 D-Dimer 803 H Puncture Site ABG pH ABG pCO2 ABG pO2 ABG HCO3 ABG O2 Saturation ABG Base Excess VBG pH 7.22 L VBG pCO2 43 VBG pO2 51 VBG O2 Sat (Abisai) 80 L VBG Base Excess -10 L FiO2 Sodium 141 141 Potassium 3.4 3.5 Chloride 105 107 Carbon Dioxide 13.1 L* 17.7 L Anion Gap 23 H 16 BUN 10 9 Creatinine 1.1 1.1 Estim Creat Clear Calc 110.6 110.6 eGFR > 60 > 60 BUN/Creatinine Ratio 9 L 8 L Glucose 181 H 126 H D Calculated Osmolality 285 281 Lactic Acid Calcium 9.7 9.3 Corrected Calcium 9.7 9.3 Total Bilirubin 1.2 0.8 AST 27 26 ALT 21 19 Alkaline Phosphatase 75 66 Ammonia 34 H Total Creatine Kinase Troponin I < 0.002 Total Protein 7.7 7.2 Albumin 5.0 4.8 Globulin 2.7 2.4 Albumin/Globulin Ratio 1.9 2.0 TSH 2.16 Thyroxine (T4) 6.6 Salicylates < 3.0 Urine Opiates Screen Negative Urine Fentanyl Screen Negative Acetaminophen < 2.0 L Ur Barbiturates Screen Negative U Amphetamin/Meth Scrn Negative U Benzodiazepines Scrn Negative U Cocaine Metab Screen Negative U Marijuana (THC) Screen Positive A Ethyl Alcohol < 3.0 11/20/24 11/20/24 11/20/24 15:03 15:17 16:23 WBC RBC Hgb Hct MCV MCH MCHC RDW Std Deviation Plt Count Neut % (Auto) Lymph % (Auto) Izard % (Auto) Eos % (Auto) Baso % (Auto) Neut # (Auto) Lymph # (Auto) Izard # (Auto) Eos # (Auto) Baso # (Auto) Immature Gran # (Auto) Absolute Nucleated RBC Immature Gran % Nucleated RBC % D-Dimer Puncture Site Right Radial Right Radial Right Radial ABG pH 7.22 L 7.31 L 7.23 L ABG pCO2 52 H 43 51 H ABG pO2 35 L* 510 H D 496 H ABG HCO3 21 21 21 ABG O2 Saturation 56 L 101 H 100 H ABG Base Excess -7 L -5 L -7 L VBG pH VBG pCO2 VBG pO2 VBG O2 Sat (Abisai) VBG Base Excess FiO2 100 100 100 Sodium Potassium Chloride Carbon Dioxide Anion Gap BUN Creatinine Estim Creat Clear Calc eGFR BUN/Creatinine Ratio Glucose Calculated Osmolality Lactic Acid Calcium Corrected Calcium Total Bilirubin AST ALT Alkaline Phosphatase Ammonia Total Creatine Kinase Troponin I Total Protein Albumin Globulin Albumin/Globulin Ratio TSH Thyroxine (T4) Salicylates Urine Opiates Screen Urine Fentanyl Screen Acetaminophen Ur Barbiturates Screen U Amphetamin/Meth Scrn U Benzodiazepines Scrn U Cocaine Metab Screen U Marijuana (THC) Screen Ethyl Alcohol 11/20/24 11/20/24 11/20/24 17:56 18:29 22:29 WBC RBC Hgb Hct MCV MCH MCHC RDW Std Deviation Plt Count Neut % (Auto) Lymph % (Auto) Izard % (Auto) Eos % (Auto) Baso % (Auto) Neut # (Auto) Lymph # (Auto) Izard # (Auto) Eos # (Auto) Baso # (Auto) Immature Gran # (Auto) Absolute Nucleated RBC Immature Gran % Nucleated RBC % D-Dimer Puncture Site Right Radial ABG pH 7.34 L D ABG pCO2 42 ABG pO2 219 H D ABG HCO3 23 ABG O2 Saturation 100 H ABG Base Excess -3 VBG pH VBG pCO2 VBG pO2 VBG O2 Sat (Abisai) VBG Base Excess FiO2 50 Sodium Potassium Chloride Carbon Dioxide Anion Gap BUN Creatinine Estim Creat Clear Calc eGFR BUN/Creatinine Ratio Glucose Calculated Osmolality Lactic Acid 2.4 H 1.8 Calcium Corrected Calcium Total Bilirubin AST ALT Alkaline Phosphatase Ammonia Total Creatine Kinase 409 H Troponin I Total Protein Albumin Globulin Albumin/Globulin Ratio TSH Thyroxine (T4) Salicylates Urine Opiates Screen Urine Fentanyl Screen Acetaminophen Ur Barbiturates Screen U Amphetamin/Meth Scrn U Benzodiazepines Scrn U Cocaine Metab Screen U Marijuana (THC) Screen Ethyl Alcohol 11/21/24 11/21/24 04:32 04:45 WBC 12.8 H RBC 4.27 L Hgb 13.5 D Hct 38.1 L MCV 89 MCH 31.6 MCHC 35.4 RDW Std Deviation 39.4 Plt Count 256 D Neut % (Auto) 71 Lymph % (Auto) 18 Izard % (Auto) 10 Eos % (Auto) 0 Baso % (Auto) 0 Neut # (Auto) 9.0 H Lymph # (Auto) 2.3 Izard # (Auto) 1.3 H Eos # (Auto) 0.0 Baso # (Auto) 0.0 Immature Gran # (Auto) 0.03 H Absolute Nucleated RBC 0.00 Immature Gran % 0 Nucleated RBC % 0 D-Dimer Puncture Site Right Radial ABG pH 7.46 H D ABG pCO2 33 ABG pO2 163 H D ABG HCO3 23 ABG O2 Saturation 100 H ABG Base Excess 0 VBG pH VBG pCO2 VBG pO2 VBG O2 Sat (Abisai) VBG Base Excess FiO2 35 Sodium 145 Potassium 3.8 Chloride 111 H Carbon Dioxide 22.2 Anion Gap 12 BUN 7 L Creatinine 1.0 Estim Creat Clear Calc 121.7 eGFR > 60 BUN/Creatinine Ratio 7 L Glucose 94 Calculated Osmolality 286 Lactic Acid Calcium 9.5 Corrected Calcium 9.5 Total Bilirubin 1.6 H D AST 27 ALT 17 Alkaline Phosphatase 54 Ammonia Total Creatine Kinase 360 H D Troponin I Total Protein 6.4 Albumin 4.2 D Globulin 2.2 L Albumin/Globulin Ratio 1.9 TSH Thyroxine (T4) Salicylates Urine Opiates Screen Urine Fentanyl Screen Acetaminophen Ur Barbiturates Screen U Amphetamin/Meth Scrn U Benzodiazepines Scrn U Cocaine Metab Screen U Marijuana (THC) Screen Ethyl Alcohol ABG Interpretation ABG results: 11/20/24 11/20/24 11/20/24 14:10 15:03 15:17 ABG pH 7.22 L 7.31 L ABG pCO2 52 H 43 ABG pO2 35 L* 510 H D ABG HCO3 21 21 ABG O2 Saturation 56 L 101 H ABG Base Excess -7 L -5 L VBG pH 7.22 L VBG pCO2 43 VBG pO2 51 VBG Base Excess -10 L 11/20/24 11/20/24 11/21/24 16:23 17:56 04:32 ABG pH 7.23 L 7.34 L D 7.46 H D ABG pCO2 51 H 42 33 ABG pO2 496 H 219 H D 163 H D ABG HCO3 21 23 23 ABG O2 Saturation 100 H 100 H 100 H ABG Base Excess -7 L -3 0 VBG pH VBG pCO2 VBG pO2 VBG Base Excess Quality Measures Quality Measures VTE prophylaxis (Heparin SC ) Assessment & Plan Assessment Current Active Medications: Generic Name Dose Route Start Last Admin Trade Name Freq PRN Reason Stop Dose Admin Acetaminophen 650 mg 11/20/24 17:07 Acetaminophen 325 Mg Tablet PO 12/20/24 17:06 Q4HR PRN Pain Scale 1-10 or Temp >100 Enoxaparin Sodium 40 mg 11/21/24 21:00 Enoxaparin Sod Inj 40 Mg/0.4 Ml Syringe SC 12/05/24 20:59 HS HANNA Haloperidol Lactate 5 mg 11/20/24 18:05 Haloperidol Lact Inj 5 Mg/Ml Vial IV 11/25/24 18:04 Q6HR PRN AGITATION (SEVERE) Levetiracetam 500 mg 11/21/24 09:00 11/21/24 09:22 Levetiracetam Inj 100 Mg/Ml Vial 5ml IVP 12/21/24 08:59 500 mg Q12HR HANNA Administration Midazolam HCl 2 mg 11/21/24 10:05 Midazolam Inj 1 Mg/Ml Vial 2 Ml IVP 11/26/24 10:04 X1 PRN Seizure > 3 minutes Plan Patient is a 19-year-old male with no past medical history except on anxiety 5 years ago who presented today ground-level fall secondary to seizure-like activity. Patient will be admitted to the ICU for continuous EEG monitoring midazolam, propofol and ketamine infusion. NEURO Acute metabolic encephalopathy secondary to Status epilecticus - resolved DDx: Drug overdose, status epilepticus, viral encephalitis Dx: - Witnessed tonic-clonic seizure in ED - CK 405, Lactate 2.4 Rx: - Continuous EEG monitoring to complete at midnight - Keppra 500mg IV BID - Midazolam 2mg IV PRN for breakthrough seizures - Nuerology, Dr. Ye consulted. Appreciate recommendations RRx: - Follow up with Neurology for recommendations CVS Nil Acute PULM Intubation for airway protection secondary to status epilepticus - resolved Rx: - SBT RRX: - For extubation once passes SBT GI/Hep No acute problems RENAL Elevated CK - resolving DDx: - Seizure Dx: - CK 405 -> 360 Rx: -Received 3 L RL IVF bolus HEME/ONC Nil acute ENDO Nil acute ID Nil acute MSK/DERM Nil acute ICU Health maintenance: Dispo: Stable for downgrade to telemetry Diet: Regular DVT ppx: Heparin GI ppx: Nil IV lines: 2 pIV Central line: No Arterial line: No Patton: No Code status: FULL CODE Plan of care discussed with Attending Dr. Brendan Block MD PGY 2 Disclaimer: This note was dictated by speech recognition. Minor errors in outboard motor assembler may be present due to voice recognition software.
--- NOTE | 2024-11-21 13:27 | ESPR_ITS ---
<Statement entered by Stefan Awan MD - 11/21/24 17:31> Patient seen and assessed in hospital bed with EEG monitoring ongoing. Patient was in ICU secondary to status epilepticus requiring IV sedation. 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 Patient continues to be on IV Keppra 500 mg p.o. twice daily and neurology is closely following the case. Pending neurology recommendations regarding obtaining MRI of the brain. Patient also started vomiting uncontrollably, as result we will keep him n.p.o. for the time being and order antiemetics. Will continue to monitor the patient and have seizure precautions on. Patient's family was bedside and updated regarding medical treatment and plan. I have personally seen and examined the patient. I agree with the resident's assessment and plan as documented below. Stefan Awan DO PGY-2 Internal Medicine - GME Documentation for date of: 11/21/24 Subjective Subjective Interval history: Overnight events: No acute events overnight. Patient was seen and examined at bedside. AM vitals and labs reviewed. Patient is a downgrade from ICU. No acute complaints at this time. Patient is doing well with continuous EEG placed. Patient states that he does not remember anything from when he was at his house to today. Bruises on tongue noted. Summary of ICU stay: This patient is a 19-year-old male with a past medical history of anxiety who presented to [facility] ED on 11/20 after a ground-level fall secondary to seizure- like activity. The patient was admitted to ICU for management of status epilepticus, and then downgraded to medical floors on 11/21. The patient was going to the bathroom on the morning of 11/20, when his mother heard a loud sound, and when she went to check in on him, she found him tense and having tonic-clonic movements with his upper extremity. The episode only lasted a few minutes. On route to [facility] ED, the patient was noted to have heart rate in the 40s and SBP in the 80s with appearing diaphoretic and pale. On both the ambulance ride and in the ED, the patient was noted to be confused. The patient would then have a second seizure-like episode, which was not responsive to multiple doses of midazolam. Decision was made to intubate the patient to initiate sedation for arrest of his seizure-like activity, and the patient was admitted to ICU for further management, including continuous EEG and neurology consultation. After sedation with fentanyl, propofol, midazolam, and ketamine, the patient was noted to have termination of his seizure-like activity. On 11/21, patient had no further seizure-like episodes and sedation was weaned off early in the morning. Patient then tolerated extubation without any issues. Neurology recommended Keppra 500 mg twice daily. Continue Keppra 500 mg twice daily. Continue continuous EEG. MRI head ordered with and without contrast, as per recommendations from neurology. Review of systems otherwise negative except for what is mentioned above. Exam Vital Signs Temp Pulse Resp BP Pulse Ox O2 Del Method O2 Flow Rate 98.0 F 71 16 121/67 98 Nasal Cannula 2 11/21/24 07:00 11/21/24 12:16 11/21/24 11:00 11/21/24 12:16 11/21/24 12:16 11/21/24 11:00 11/21/24 11:00 FiO2 35 11/21/24 08:00 Narrative Exam Physical Exam: General: Alert, no acute distress. Skin: Warm, dry, intact. Head: Normocephalic, atraumatic. Eye: Normal conjunctiva, PERRL. Throat: Oral mucosa moist. Tongue lacerations noted. Cardiovascular: Regular rate and rhythm, no murmur, +S1/S2. Respiratory: Lungs are clear to auscultation, respirations unlabored, no crackles, no wheezing. Gastrointestinal: Soft, nontender, non-distended. No guarding or rebound tenderness. Extremities: No edema, no cyanosis, no clubbing. 2+ radial pulse bilaterally, 2+ pedal pulse bilaterally. Neuro: No focal deficits observed. Conversant, moving all extremities. No overt cerebellar signs/incoordination. Psychiatric: Cooperative, appropriate affect. Objective Labs 11/22/24 05:20 11/22/24 05:20 Labs: Laboratory Results - last 24 hr 11/20/24 11/20/24 11/20/24 13:11 14:10 15:03 WBC RBC Hgb Hct MCV MCH MCHC RDW Std Deviation Plt Count Neut % (Auto) Lymph % (Auto) Bowman % (Auto) Eos % (Auto) Baso % (Auto) Neut # (Auto) Lymph # (Auto) Bowman # (Auto) Eos # (Auto) Baso # (Auto) Immature Gran # (Auto) Absolute Nucleated RBC Immature Gran % Nucleated RBC % Puncture Site Right Radial ABG pH 7.22 L ABG pCO2 52 H ABG pO2 35 L* ABG HCO3 21 ABG O2 Saturation 56 L ABG Base Excess -7 L VBG pH 7.22 L VBG pCO2 43 VBG pO2 51 VBG O2 Sat (Abisai) 80 L VBG Base Excess -10 L FiO2 100 Sodium 141 Potassium 3.5 Chloride 107 Carbon Dioxide 17.7 L Anion Gap 16 BUN 9 Creatinine 1.1 Estim Creat Clear Calc 110.6 eGFR > 60 BUN/Creatinine Ratio 8 L Glucose 126 H D Calculated Osmolality 281 Lactic Acid Calcium 9.3 Corrected Calcium 9.3 Total Bilirubin 0.8 AST 26 ALT 19 Alkaline Phosphatase 66 Ammonia 34 H Total Creatine Kinase Total Protein 7.2 Albumin 4.8 Globulin 2.4 Albumin/Globulin Ratio 2.0 TSH 2.16 Thyroxine (T4) 6.6 Salicylates < 3.0 Urine Opiates Screen Negative Urine Fentanyl Screen Negative Acetaminophen < 2.0 L Ur Barbiturates Screen Negative U Amphetamin/Meth Scrn Negative U Benzodiazepines Scrn Negative U Cocaine Metab Screen Negative U Marijuana (THC) Screen Positive A 11/20/24 11/20/24 11/20/24 15:17 16:23 17:56 WBC RBC Hgb Hct MCV MCH MCHC RDW Std Deviation Plt Count Neut % (Auto) Lymph % (Auto) Bowman % (Auto) Eos % (Auto) Baso % (Auto) Neut # (Auto) Lymph # (Auto) Bowman # (Auto) Eos # (Auto) Baso # (Auto) Immature Gran # (Auto) Absolute Nucleated RBC Immature Gran % Nucleated RBC % Puncture Site Right Radial Right Radial Right Radial ABG pH 7.31 L 7.23 L 7.34 L D ABG pCO2 43 51 H 42 ABG pO2 510 H D 496 H 219 H D ABG HCO3 21 21 23 ABG O2 Saturation 101 H 100 H 100 H ABG Base Excess -5 L -7 L -3 VBG pH VBG pCO2 VBG pO2 VBG O2 Sat (Abisai) VBG Base Excess FiO2 100 100 50 Sodium Potassium Chloride Carbon Dioxide Anion Gap BUN Creatinine Estim Creat Clear Calc eGFR BUN/Creatinine Ratio Glucose Calculated Osmolality Lactic Acid Calcium Corrected Calcium Total Bilirubin AST ALT Alkaline Phosphatase Ammonia Total Creatine Kinase Total Protein Albumin Globulin Albumin/Globulin Ratio TSH Thyroxine (T4) Salicylates Urine Opiates Screen Urine Fentanyl Screen Acetaminophen Ur Barbiturates Screen U Amphetamin/Meth Scrn U Benzodiazepines Scrn U Cocaine Metab Screen U Marijuana (THC) Screen 11/20/24 11/20/24 11/21/24 18:29 22:29 04:32 WBC RBC Hgb Hct MCV MCH MCHC RDW Std Deviation Plt Count Neut % (Auto) Lymph % (Auto) Bowman % (Auto) Eos % (Auto) Baso % (Auto) Neut # (Auto) Lymph # (Auto) Bowman # (Auto) Eos # (Auto) Baso # (Auto) Immature Gran # (Auto) Absolute Nucleated RBC Immature Gran % Nucleated RBC % Puncture Site Right Radial ABG pH 7.46 H D ABG pCO2 33 ABG pO2 163 H D ABG HCO3 23 ABG O2 Saturation 100 H ABG Base Excess 0 VBG pH VBG pCO2 VBG pO2 VBG O2 Sat (Abisai) VBG Base Excess FiO2 35 Sodium Potassium Chloride Carbon Dioxide Anion Gap BUN Creatinine Estim Creat Clear Calc eGFR BUN/Creatinine Ratio Glucose Calculated Osmolality Lactic Acid 2.4 H 1.8 Calcium Corrected Calcium Total Bilirubin AST ALT Alkaline Phosphatase Ammonia Total Creatine Kinase 409 H Total Protein Albumin Globulin Albumin/Globulin Ratio TSH Thyroxine (T4) Salicylates Urine Opiates Screen Urine Fentanyl Screen Acetaminophen Ur Barbiturates Screen U Amphetamin/Meth Scrn U Benzodiazepines Scrn U Cocaine Metab Screen U Marijuana (THC) Screen 11/21/24 04:45 WBC 12.8 H RBC 4.27 L Hgb 13.5 D Hct 38.1 L MCV 89 MCH 31.6 MCHC 35.4 RDW Std Deviation 39.4 Plt Count 256 D Neut % (Auto) 71 Lymph % (Auto) 18 Bowman % (Auto) 10 Eos % (Auto) 0 Baso % (Auto) 0 Neut # (Auto) 9.0 H Lymph # (Auto) 2.3 Bowman # (Auto) 1.3 H Eos # (Auto) 0.0 Baso # (Auto) 0.0 Immature Gran # (Auto) 0.03 H Absolute Nucleated RBC 0.00 Immature Gran % 0 Nucleated RBC % 0 Puncture Site ABG pH ABG pCO2 ABG pO2 ABG HCO3 ABG O2 Saturation ABG Base Excess VBG pH VBG pCO2 VBG pO2 VBG O2 Sat (Abisai) VBG Base Excess FiO2 Sodium 145 Potassium 3.8 Chloride 111 H Carbon Dioxide 22.2 Anion Gap 12 BUN 7 L Creatinine 1.0 Estim Creat Clear Calc 121.7 eGFR > 60 BUN/Creatinine Ratio 7 L Glucose 94 Calculated Osmolality 286 Lactic Acid Calcium 9.5 Corrected Calcium 9.5 Total Bilirubin 1.6 H D AST 27 ALT 17 Alkaline Phosphatase 54 Ammonia Total Creatine Kinase 360 H D Total Protein 6.4 Albumin 4.2 D Globulin 2.2 L Albumin/Globulin Ratio 1.9 TSH Thyroxine (T4) Salicylates Urine Opiates Screen Urine Fentanyl Screen Acetaminophen Ur Barbiturates Screen U Amphetamin/Meth Scrn U Benzodiazepines Scrn U Cocaine Metab Screen U Marijuana (THC) Screen ABG Interpretation ABG results: 11/20/24 11/20/24 11/20/24 14:10 15:03 15:17 ABG pH 7.22 L 7.31 L ABG pCO2 52 H 43 ABG pO2 35 L* 510 H D ABG HCO3 21 21 ABG O2 Saturation 56 L 101 H ABG Base Excess -7 L -5 L VBG pH 7.22 L VBG pCO2 43 VBG pO2 51 VBG Base Excess -10 L 11/20/24 11/20/24 11/21/24 16:23 17:56 04:32 ABG pH 7.23 L 7.34 L D 7.46 H D ABG pCO2 51 H 42 33 ABG pO2 496 H 219 H D 163 H D ABG HCO3 21 23 23 ABG O2 Saturation 100 H 100 H 100 H ABG Base Excess -7 L -3 0 VBG pH VBG pCO2 VBG pO2 VBG Base Excess Quality Measures Quality Measures VTE prophylaxis (Heparin SC ) Assessment & Plan Assessment Current Active Medications: Generic Name Dose Route Start Last Admin Trade Name Freq PRN Reason Stop Dose Admin Acetaminophen 650 mg 11/20/24 17:07 Acetaminophen 325 Mg Tablet PO 12/20/24 17:06 Q4HR PRN Pain Scale 1-10 or Temp >100 Enoxaparin Sodium 40 mg 11/21/24 21:00 Enoxaparin Sod Inj 40 Mg/0.4 Ml Syringe SC 12/05/24 20:59 HS HANNA Haloperidol Lactate 5 mg 11/20/24 18:05 Haloperidol Lact Inj 5 Mg/Ml Vial IV 11/25/24 18:04 Q6HR PRN AGITATION (SEVERE) Levetiracetam 500 mg 11/21/24 09:00 11/21/24 09:22 Levetiracetam Inj 100 Mg/Ml Vial 5ml IVP 12/21/24 08:59 500 mg Q12HR HANNA Administration Midazolam HCl 2 mg 11/21/24 10:05 Midazolam Inj 1 Mg/Ml Vial 2 Ml IVP 11/26/24 10:04 X1 PRN Seizure > 3 minutes Plan This patient is a 19-year-old male with a past medical history of anxiety who presented to [facility] ED on 11/20 after a ground-level fall secondary to seizure- like activity. The patient was admitted to ICU for management of status epilepticus, and then downgraded to medical floors on 11/21. #Status epilepticus, resolved #New onset seizures #Acute encephalopathy, resolving #Lactic acidosis, resolved #Elevated CK, resolving Patient was noted to have new onset seizure-like activity, which was what brought the patient to the ED. Patient's seizures could not be controlled with midazolam in ED, so patient was intubated for additional sedation, which stopped the patient's seizures. Patient does not have any history of head trauma, stroke, abnormalities on , or significant childhood developmental delay. Additionally, patient does not have any family history of seizures. Exact etiology is unclear at this time. Diagnostics: CT head without contrast negative for acute processes. Plan: Neurology consulted, appreciate recommendations Continue continuous EEG, pending read MRI head with and without contrast ordered, pending Keppra 500 mg twice daily Midazolam as needed for breakthrough seizures Seizure precautions and aspiration precautions Patient to follow-up with outpatient neurology #Intractable vomiting #Marijuana use Patient noted to have significant vomiting on downgrade on 11/21. Possibly secondary to excessive marijuana use or delayed reaction to sedating medications used in intubation. Plan: Ondansetron 4 mg every 4 hour as needed for nausea/vomiting Patient made n.p.o. DVT Prophylaxis: Lovenox GI Prophylaxis: N/A Bowel: N/A Diet: NPO Patton: N/A Lines: Peripheral IV Antibiotics: N/A Code Status: FULL Reason for Hospitalization: Status epilepticus Other Barriers to Discharge: EEG, MRI Patient plan of care was discussed with the senior resident Dr. Awan (PGY- 2) and attending physician Dr. Danette Glover, PGY1 Attending Provider Attestation/Addendum I have discussed and was present for the essential components of the history, physical examination, diagnosis, and treatment plan with the resident. I agree with the patient's care as documented by the resident and amended herein by me. Yovani Samaniego, DO. Although this document has been carefully reviewed, there may still be some phonetic and other typographical errors. These errors are purely grammatical due to imperfections in the software program and should not be construed in any way to compromise the substance of the patient's medical care during this visit. \
--- NOTE | 2024-11-21 13:58 | ESPR_ITS ---
Documentation for date of: 11/21/24 Subjective Subjective Interval history: Patient was seen and examined at the bedside. 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 Patient has been interacting since off sedation. Patient was safely extubated in the morning. Patient reported that he denies any headache, chest pain, dizziness, vision changes or any problem. He denied having previous episodes of seizure like this with him or his family. He used to smoke a year ago but quit. Patient is feeling well. Vitals were stable. Labs revealed reactive leukocytosis. Hemoglobin stable. Electrolyte panel unremarkable. Kidney function remained stable. Will likely follow-up with extended EEG results. Continue Keppra 500 mg twice daily for now. Will follow-up with brain MRI with and without contrast as well. Exam Vital Signs Temp Pulse Resp BP Pulse Ox O2 Del Method O2 Flow Rate 98.0 F 71 16 121/67 98 Nasal Cannula 2 11/21/24 07:00 11/21/24 12:16 11/21/24 11:00 11/21/24 12:16 11/21/24 12:16 11/21/24 11:00 11/21/24 11:00 FiO2 35 11/21/24 08:00 Narrative Exam GENERAL APPEARANCE: Patient is awake and alert x 3. HEENT: NC, AT. MMM. EOMI, clear conjunctiva, oropharynx clear. NECK: Supple without lymphadenopathy. No stiffness or restricted ROM. HEART: Regular rate and regular rhythm, normal S1/S2, no m/r/g LUNGS: CTAB, moving air well. No crackles or wheezes are heard. ABDOMEN: Soft, nontender, nondistended with good bowel sounds heard. BACK: No CVAT, no obvious deformity. EXTREMITIES: Without cyanosis, clubbing or edema. NEUROLOGICAL: Grossly nonfocal. AO x 3. CN not formally tested but appear grossly intact. Skin: Warm and dry without any rash. Psych: Appropriate mood and affect Objective Labs 11/22/24 05:20 11/22/24 05:20 Labs: Laboratory Results - last 24 hr 11/20/24 11/20/24 11/20/24 13:11 14:10 15:03 WBC RBC Hgb Hct MCV MCH MCHC RDW Std Deviation Plt Count Neut % (Auto) Lymph % (Auto) [place] % (Auto) Eos % (Auto) Baso % (Auto) Neut # (Auto) Lymph # (Auto) [place] # (Auto) Eos # (Auto) Baso # (Auto) Immature Gran # (Auto) Absolute Nucleated RBC Immature Gran % Nucleated RBC % Puncture Site Right Radial ABG pH 7.22 L ABG pCO2 52 H ABG pO2 35 L* ABG HCO3 21 ABG O2 Saturation 56 L ABG Base Excess -7 L VBG pH 7.22 L VBG pCO2 43 VBG pO2 51 VBG O2 Sat (Abisai) 80 L VBG Base Excess -10 L FiO2 100 Sodium 141 Potassium 3.5 Chloride 107 Carbon Dioxide 17.7 L Anion Gap 16 BUN 9 Creatinine 1.1 Estim Creat Clear Calc 110.6 eGFR > 60 BUN/Creatinine Ratio 8 L Glucose 126 H D Calculated Osmolality 281 Lactic Acid Calcium 9.3 Corrected Calcium 9.3 Total Bilirubin 0.8 AST 26 ALT 19 Alkaline Phosphatase 66 Ammonia 34 H Total Creatine Kinase Total Protein 7.2 Albumin 4.8 Globulin 2.4 Albumin/Globulin Ratio 2.0 TSH 2.16 Thyroxine (T4) 6.6 Salicylates < 3.0 Urine Opiates Screen Negative Urine Fentanyl Screen Negative Acetaminophen < 2.0 L Ur Barbiturates Screen Negative U Amphetamin/Meth Scrn Negative U Benzodiazepines Scrn Negative U Cocaine Metab Screen Negative U Marijuana (THC) Screen Positive A 11/20/24 11/20/24 11/20/24 15:17 16:23 17:56 WBC RBC Hgb Hct MCV MCH MCHC RDW Std Deviation Plt Count Neut % (Auto) Lymph % (Auto) [place] % (Auto) Eos % (Auto) Baso % (Auto) Neut # (Auto) Lymph # (Auto) [place] # (Auto) Eos # (Auto) Baso # (Auto) Immature Gran # (Auto) Absolute Nucleated RBC Immature Gran % Nucleated RBC % Puncture Site Right Radial Right Radial Right Radial ABG pH 7.31 L 7.23 L 7.34 L D ABG pCO2 43 51 H 42 ABG pO2 510 H D 496 H 219 H D ABG HCO3 21 21 23 ABG O2 Saturation 101 H 100 H 100 H ABG Base Excess -5 L -7 L -3 VBG pH VBG pCO2 VBG pO2 VBG O2 Sat (Abisai) VBG Base Excess FiO2 100 100 50 Sodium Potassium Chloride Carbon Dioxide Anion Gap BUN Creatinine Estim Creat Clear Calc eGFR BUN/Creatinine Ratio Glucose Calculated Osmolality Lactic Acid Calcium Corrected Calcium Total Bilirubin AST ALT Alkaline Phosphatase Ammonia Total Creatine Kinase Total Protein Albumin Globulin Albumin/Globulin Ratio TSH Thyroxine (T4) Salicylates Urine Opiates Screen Urine Fentanyl Screen Acetaminophen Ur Barbiturates Screen U Amphetamin/Meth Scrn U Benzodiazepines Scrn U Cocaine Metab Screen U Marijuana (THC) Screen 11/20/24 11/20/24 11/21/24 18:29 22:29 04:32 WBC RBC Hgb Hct MCV MCH MCHC RDW Std Deviation Plt Count Neut % (Auto) Lymph % (Auto) [place] % (Auto) Eos % (Auto) Baso % (Auto) Neut # (Auto) Lymph # (Auto) [place] # (Auto) Eos # (Auto) Baso # (Auto) Immature Gran # (Auto) Absolute Nucleated RBC Immature Gran % Nucleated RBC % Puncture Site Right Radial ABG pH 7.46 H D ABG pCO2 33 ABG pO2 163 H D ABG HCO3 23 ABG O2 Saturation 100 H ABG Base Excess 0 VBG pH VBG pCO2 VBG pO2 VBG O2 Sat (Abisai) VBG Base Excess FiO2 35 Sodium Potassium Chloride Carbon Dioxide Anion Gap BUN Creatinine Estim Creat Clear Calc eGFR BUN/Creatinine Ratio Glucose Calculated Osmolality Lactic Acid 2.4 H 1.8 Calcium Corrected Calcium Total Bilirubin AST ALT Alkaline Phosphatase Ammonia Total Creatine Kinase 409 H Total Protein Albumin Globulin Albumin/Globulin Ratio TSH Thyroxine (T4) Salicylates Urine Opiates Screen Urine Fentanyl Screen Acetaminophen Ur Barbiturates Screen U Amphetamin/Meth Scrn U Benzodiazepines Scrn U Cocaine Metab Screen U Marijuana (THC) Screen 11/21/24 04:45 WBC 12.8 H RBC 4.27 L Hgb 13.5 D Hct 38.1 L MCV 89 MCH 31.6 MCHC 35.4 RDW Std Deviation 39.4 Plt Count 256 D Neut % (Auto) 71 Lymph % (Auto) 18 [place] % (Auto) 10 Eos % (Auto) 0 Baso % (Auto) 0 Neut # (Auto) 9.0 H Lymph # (Auto) 2.3 [place] # (Auto) 1.3 H Eos # (Auto) 0.0 Baso # (Auto) 0.0 Immature Gran # (Auto) 0.03 H Absolute Nucleated RBC 0.00 Immature Gran % 0 Nucleated RBC % 0 Puncture Site ABG pH ABG pCO2 ABG pO2 ABG HCO3 ABG O2 Saturation ABG Base Excess VBG pH VBG pCO2 VBG pO2 VBG O2 Sat (Abisai) VBG Base Excess FiO2 Sodium 145 Potassium 3.8 Chloride 111 H Carbon Dioxide 22.2 Anion Gap 12 BUN 7 L Creatinine 1.0 Estim Creat Clear Calc 121.7 eGFR > 60 BUN/Creatinine Ratio 7 L Glucose 94 Calculated Osmolality 286 Lactic Acid Calcium 9.5 Corrected Calcium 9.5 Total Bilirubin 1.6 H D AST 27 ALT 17 Alkaline Phosphatase 54 Ammonia Total Creatine Kinase 360 H D Total Protein 6.4 Albumin 4.2 D Globulin 2.2 L Albumin/Globulin Ratio 1.9 TSH Thyroxine (T4) Salicylates Urine Opiates Screen Urine Fentanyl Screen Acetaminophen Ur Barbiturates Screen U Amphetamin/Meth Scrn U Benzodiazepines Scrn U Cocaine Metab Screen U Marijuana (THC) Screen ABG Interpretation ABG results: 11/20/24 11/20/24 11/20/24 14:10 15:03 15:17 ABG pH 7.22 L 7.31 L ABG pCO2 52 H 43 ABG pO2 35 L* 510 H D ABG HCO3 21 21 ABG O2 Saturation 56 L 101 H ABG Base Excess -7 L -5 L VBG pH 7.22 L VBG pCO2 43 VBG pO2 51 VBG Base Excess -10 L 11/20/24 11/20/24 11/21/24 16:23 17:56 04:32 ABG pH 7.23 L 7.34 L D 7.46 H D ABG pCO2 51 H 42 33 ABG pO2 496 H 219 H D 163 H D ABG HCO3 21 23 23 ABG O2 Saturation 100 H 100 H 100 H ABG Base Excess -7 L -3 0 VBG pH VBG pCO2 VBG pO2 VBG Base Excess Quality Measures Quality Measures VTE prophylaxis (Heparin SC ) Assessment & Plan Assessment Current Active Medications: Generic Name Dose Route Start Last Admin Trade Name Freq PRN Reason Stop Dose Admin Acetaminophen 650 mg 11/20/24 17:07 Acetaminophen 325 Mg Tablet PO 12/20/24 17:06 Q4HR PRN Pain Scale 1-10 or Temp >100 Enoxaparin Sodium 40 mg 11/21/24 21:00 Enoxaparin Sod Inj 40 Mg/0.4 Ml Syringe SC 12/05/24 20:59 HS HANNA Haloperidol Lactate 5 mg 11/20/24 18:05 Haloperidol Lact Inj 5 Mg/Ml Vial IV 11/25/24 18:04 Q6HR PRN AGITATION (SEVERE) Levetiracetam 500 mg 11/21/24 09:00 11/21/24 09:22 Levetiracetam Inj 100 Mg/Ml Vial 5ml IVP 12/21/24 08:59 500 mg Q12HR HANNA Administration Midazolam HCl 2 mg 11/21/24 10:05 Midazolam Inj 1 Mg/Ml Vial 2 Ml IVP 11/26/24 10:04 X1 PRN Seizure > 3 minutes Plan This patient is a 19-year-old male with no known medical history presented with confusion and had a grand mal seizure in the ER. Patient was intubated and mechanically ventilated due to ongoing persistent seizure/mentation. Admitted for seizure workup. #Acute encephalopathy likely due to, resolved #Grand mal seizure ? Patient presented with confusion and grand mal seizure while in ER. According to EMS, patient's blood pressure was in 80s systolic and he was bradycardic. Patient was given atropine to increase his heart rate. No hypotension or bradycardic episode noted in the ER. Postictal phase lasting more than 30 minutes. Vitals were unremarkable. Labs were insignificant with only mild elevation in the white count. CT brain pending. Chest x-ray negative for aspiration. EKG showed sinus rhythm with QTc 439. CT brain without contrast was negative for hemorrhage or ischemia. Shoulder XR was negative Loading dose of keppra was given Plan -Will follow-up with brain MRI with and without contrast and EEG -Continue Keppra 500 mg BID -Midazolam as needed for breakthrough seizure - Seizure precautions and aspiration precaution - Follow-up with lab work #Postextubation #Possible Aspiration Pneumonia per CT finding #Lactic acidosis, resolved #Elevated CK #Anion gap metabolic acidosis, improved #Marijuana use Rest of the management as per ICU team. Plan of care discussed with neurologist, Dr Ephraim Foley MD PGY3 Attending Provider Attestation/Addendum I personally have seen and examined the patient at the bedside and I agreed with the resident's findings, assessment and plan of care. Patient's new onset seizure, without any risk factors. Follow-up with EEG once a 24-hour recording is completed and MRI brain with and without contrast to evaluate further. Patient will be continued on Keppra 500 mg twice a day. Patient got extubated and is afocal on neuroexam.
--- NOTE | 2024-11-21 14:18 | RESP.EEG ---
EEG checked at this time and impedances fixed. Will continue to monitor
[2024-11-21] MEDS: RINGERS LACTATED 1000 ML 1,000 ML 125 ML IV (16:45)
[2024-11-21] MEDS: ACETAMINOPHEN IVPB 1,000 MG/100 ML VIAL 250 MG IV (21:27)
[2024-11-21] MEDS: ENOXAPARIN SOD INJ 40 MG/0.4 ML SYRINGE SC (21:27)
[2024-11-22] VITALS (9 sets, daily range): BP systolic 100–135; BP diastolic 49–81; PULSE 54–103; RESP 14–98; TEMP 36.1–37.6; O2SAT 94–99; BMI 23.8; BMI 23.9
--- NOTE | 2024-11-22 | XR_ITS ---
Examination: MRI of brain without intravenous contrast. MRI brain with intravenous contrast. Date and time of exam:November 22, 2024, 1248 hours INDICATIONS: Altered mental status November 20, 2024 Technique: Multiple axial and sagittal images of the brain to been obtained. Siemens high-resolution 1.52 Nanette short bore scanner utilized. Sagittal sections, T1 weighted images, TR 500, TE 14, are performed. Axial sections proton-density and T2-weighted images have been obtained. Inversion recovery axial images, TR 9260, TE 111, TR 2500. Diffusion weighted images, axial sections, TR 4800, TE 128, B value 1000. Axial sections, ADC map, TR 4800, TE 128. Axial and coronal images were also obtained post 16 cc gadolinium administered intravenously. Findings:: Enlargement of the sella turcica is not present. The optic chiasm and infundibular stalk are not remarkable. There is no localized enlargement of the medulla or nat. Fourth ventricle and cerebellar tonsils appear normal in position. No subacute area of hemorrhage density is seen. Fourth ventricle is midline. Mass in the cerebellopontine angle region is not evident. 7th and 8th nerve complexes exhibit symmetry Globes are symmetrical Orbital musculature including medial lateral rectus muscles do not exhibit abnormality Increased white matter signal is not seen Effacement of the cortical sulcal markings is not identified. Mass effect upon the ventricular system is not identified. Diffusion-weighted images demonstrate no foci restricted diffusion, extensive magnetic susceptibility artifact Contrast images demonstrate no abnormal contrast enhancement Impression: Negative for acute hemorrhage mass effect or midline shift No acute infarct No MR findings diagnostic for demyelinating disease No abnormal enhancement cerebellar or cerebral
[2024-11-22] MEDS: RINGERS LACTATED 1000 ML 1,000 ML 125 ML IV (01:19)
--- NOTE | 2024-11-22 02:57 | RESP.EEG ---
Extended EEG has been completed and is ready for MD interpretation
[2024-11-22 05:34] LABS: Basophils # (Auto) 0.0 Thou/mm3 (0.0-0.2); Basophils % (Auto) 0 % (0-2.5); Eosinophils # (Auto) 0.0 Thou/mm3 (0.0-0.5); Eosinophils % (Auto) 0 % (0-10); Hematocrit 38.3 % (41.0-53.0); Hemoglobin 13.3 g/dL (13.5-16.0); Immature Granulocytes Auto 0.06 Thou/mm3 (0.00-0.00); Lymphocytes # (Auto) 2.2 Thou/mm3 (1.0-4.8); Lymphocytes % (Auto) 16 % (10-50); Mean Corpuscular HGB Conc 34.7 g/dl (31.0-37.0); Mean Corpuscular Hemoglobin 30.9 pg (25.0-35.0); Mean Corpuscular Volume 89 fL (80-100); Monocytes # (Auto) 0.9 Thou/mm3 (0.0-0.8); Monocytes % (Auto) 6 % (0-12); Neutrophils # (Auto) 10.8 Thou/mm3 (1.8-7.7); Neutrophils % (Auto) 77 % (37-80); Nucleated Red Blood Cell # 0.00 Thou/mm3 (0.00-0.00); Nucleated Red Blood Cell % 0 /100 WBC (0); Platelet Count 238 Thou/mm3 (140-440); RDW Standard Deviation 39.2 fL (35.1-43.9); Red Blood Count 4.30 Miln/mm3 (4.50-5.90); White Blood Count 13.9 Thou/mm3 (4.5-11.0)
[2024-11-22 06:11] LABS: Alanine Aminotransferase 24 U/L (10-49); Albumin, Serum 4.4 gm/dL (3.5-5.0); Albumin/Globulin Ratio 1.8 (1.2-2.2); Alkaline Phosphatase 54 U/L (46-116); Anion Gap 13 (7-16); Aspartate Amino Transferase 65 U/L (0-34); BUN/Creatinine Ratio 6 Ratio (12-20); Bilirubin,Total 2.3 mg/dL (0.3-1.2); Blood Urea Nitrogen < 5 mg/dL (9-23); Calcium 9.8 mg/dL (8.3-10.6); Calcium (Corrected) 9.8 mg/dL (8.5-10.1); Carbon Dioxide 23.7 mMol/L (20.0-31.0); Chloride 108 mMol/L (98-107); Creatinine (Component) 0.9 mg/dL (0.6-1.3); Estimated Creatinine Clearance 148.0 mL/min (>60); Globulin 2.4 gm/dL (2.3-3.5); Glucose 92 mg/dL (74-106); Magnesium 1.8 mg/dL (1.6-2.6); Osmolality,Calculated 285 (275-295); Phosphorous 3.0 mg/dL (2.4-5.1); Potassium 3.4 mMol/L (3.4-5.1); Sodium 145 mMol/L (136-145); Total Protein 6.8 gm/dL (5.7-8.2); eGFR > 60 See Note
--- NOTE | 2024-11-22 07:49 | XR_ITS ---
Examination: Abdomen sonogram, complete Date and time of exam: November 22, 2024, 0922 hours INDICATIONS: Elevated bilirubin and leukocytosis with vomiting beginning November 22, 2024. Technique: Multiple real-time grayscale transabdominal sonographic images of the abdomen have been obtained. Findings: Normal gallbladder. Normal common bile duct 0.4 cm Pancreatic head 2.6 cm Aorta not enlarged. Liver 18.2 cm smooth contour Normal hepatopedal portal venous flow Patent IVC Right kidney 11.2 cm cortex 1.6 cm Left kidney 12.0 cm cortex 1.6 cm 6 mm probable calculus upper pole right kidney Left kidney 12.0 cm cortex 1.6 cm Spleen 11.4 cm IMPRESSION: Normal gallbladder Mild hepatomegaly Suspicious for 5 mm calculus upper pole right kidney
[2024-11-22] MEDS: levETIRAcetam INJ 100 MG/ML VIAL 5ML 500 MG IVP ×2 (08:55→20:41)
--- NOTE | 2024-11-22 10:27 | PC.SS ---
Follow up note: MRI and neurology recommendations pending.
[2024-11-22 12:14] LABS: Hepatitis A Antibody IgM Non Reactive (Non React); Hepatitis B Core Antibody IgM Non Reactive (Non React); Hepatitis B Surface Antigen Non Reactive (Non React); Hepatitis C Antibody Non Reactive (Non React)
--- NOTE | 2024-11-22 13:45 | PD.RESPRO ---
Documentation for date of: 11/22/24 Subjective Subjective Interval history: Patient was seen and examined at the bedside. Overnight, patient had a fever spike of 102. Patient did had a episode of vomiting with nausea overnight. Repeat blood cultures were ordered per primary team. Patient denied any headaches, vision changes or dizziness. He endorsed mild right upper quadrant pain. Negative Rosales sign. Vitals showed mildly elevated blood pressure with tachycardia. Labs revealed slightly elevated white count. Hemoglobin stable. T. bili went up to 2.3. AST mildly elevated. Hep panel was negative.EKG showed sinus rhythm with QTc [address]-T changes. Abdominal ultrasound showed 5 mm calculus upper pole right kidney. Brain MRI showed no acute changes. EEG results will be read by neurologist later. Recommended that even if EEG comes normal patient needs to continue Keppra 500 mg twice daily due to witnessed seizure twice and prolonged postictal phase. Will follow-up with blood cultures due to fever spike. Exam Vital Signs Temp Pulse Resp BP Pulse Ox O2 Del Method O2 Flow Rate 98.1 F 103 H 24 H 131/80 H 97 Room Air 2 11/22/24 12:00 11/22/24 12:00 11/22/24 12:00 11/22/24 12:00 11/22/24 12:00 11/22/24 12:00 11/21/24 11:00 FiO2 35 11/21/24 08:00 Narrative Exam GENERAL APPEARANCE: Patient is awake and alert x 3. HEENT: NC, AT. MMM. EOMI, clear conjunctiva, oropharynx clear. NECK: Supple without lymphadenopathy. No stiffness or restricted ROM. HEART: Regular rate and regular rhythm, normal S1/S2, no m/r/g LUNGS: CTAB, moving air well. No crackles or wheezes are heard. ABDOMEN: Soft, nontender, nondistended with good bowel sounds heard. BACK: No CVAT, no obvious deformity. EXTREMITIES: Without cyanosis, clubbing or edema. NEUROLOGICAL: Grossly nonfocal. AO x 3. CN not formally tested but appear grossly intact. Skin: Warm and dry without any rash. Psych: Appropriate mood and affect Objective Labs 11/22/24 05:20 11/22/24 05:20 Labs: Laboratory Results - last 24 hr 11/22/24 05:20 WBC 13.9 H RBC 4.30 L Hgb 13.3 L Hct 38.3 L MCV 89 MCH 30.9 MCHC 34.7 RDW Std Deviation 39.2 Plt Count 238 Neut % (Auto) 77 Lymph % (Auto) 16 [place] % (Auto) 6 Eos % (Auto) 0 Baso % (Auto) 0 Neut # (Auto) 10.8 H Lymph # (Auto) 2.2 [place] # (Auto) 0.9 H Eos # (Auto) 0.0 Baso # (Auto) 0.0 Immature Gran # (Auto) 0.06 H Absolute Nucleated RBC 0.00 Immature Gran % 0 Nucleated RBC % 0 Sodium 145 Potassium 3.4 Chloride 108 H Carbon Dioxide 23.7 Anion Gap 13 BUN < 5 L Creatinine 0.9 Estim Creat Clear Calc 148.0 eGFR > 60 BUN/Creatinine Ratio 6 L Glucose 92 Calculated Osmolality 285 Calcium 9.8 Corrected Calcium 9.8 Phosphorus 3.0 Magnesium 1.8 Total Bilirubin 2.3 H D AST 65 H ALT 24 Alkaline Phosphatase 54 Total Protein 6.8 Albumin 4.4 Globulin 2.4 Albumin/Globulin Ratio 1.8 Hepatitis A IgM Ab Non Reactive Hep Bs Antigen Non Reactive Hep B Core IgM Ab Non Reactive Hepatitis C Antibody Non Reactive ABG Interpretation ABG results: 11/20/24 11/20/24 11/20/24 14:10 15:03 15:17 ABG pH 7.22 L 7.31 L ABG pCO2 52 H 43 ABG pO2 35 L* 510 H D ABG HCO3 21 21 ABG O2 Saturation 56 L 101 H ABG Base Excess -7 L -5 L VBG pH 7.22 L VBG pCO2 43 VBG pO2 51 VBG Base Excess -10 L 11/20/24 11/20/24 11/21/24 16:23 17:56 04:32 ABG pH 7.23 L 7.34 L D 7.46 H D ABG pCO2 51 H 42 33 ABG pO2 496 H 219 H D 163 H D ABG HCO3 21 23 23 ABG O2 Saturation 100 H 100 H 100 H ABG Base Excess -7 L -3 0 VBG pH VBG pCO2 VBG pO2 VBG Base Excess Quality Measures Quality Measures VTE prophylaxis (Heparin SC ) Assessment & Plan Assessment Current Active Medications: Generic Name Dose Route Start Last Admin Trade Name Freq PRN Reason Stop Dose Admin Acetaminophen 650 mg 11/20/24 17:07 Acetaminophen 325 Mg Tablet PO 12/20/24 17:06 Q4HR PRN Pain Scale 1-10 or Temp >100 Enoxaparin Sodium 40 mg 11/21/24 21:00 11/21/24 21:27 Enoxaparin Sod Inj 40 Mg/0.4 Ml Syringe SC 12/05/24 20:59 40 mg HS HANNA Administration Haloperidol Lactate 5 mg 11/20/24 18:05 Haloperidol Lact Inj 5 Mg/Ml Vial IV 11/25/24 18:04 Q6HR PRN AGITATION (SEVERE) Levetiracetam 500 mg 11/21/24 09:00 11/22/24 08:55 Levetiracetam Inj 100 Mg/Ml Vial 5ml IVP 12/21/24 08:59 500 mg Q12HR HANNA Administration Midazolam HCl 2 mg 11/21/24 10:05 Midazolam Inj 1 Mg/Ml Vial 2 Ml IVP 11/26/24 10:04 X1 PRN Seizure > 3 minutes Ondansetron HCl 4 mg 11/21/24 16:15 Ondansetron Inj 2 Mg/Ml Inj 2 Ml IVP 12/21/24 16:14 Q6HR PRN NAUSEA OR VOMITING Protocol Plan This patient is a 19-year-old male with no known medical history presented with confusion and had a grand mal seizure in the ER. Patient was intubated and mechanically ventilated due to ongoing persistent seizure/mentation. Admitted for seizure workup. #Acute encephalopathy likely due to, resolved #Grand mal seizure ? Patient presented with confusion and grand mal seizure while in ER. According to EMS, patient's blood pressure was in 80s systolic and he was bradycardic. Patient was given atropine to increase his heart rate. No hypotension or bradycardic episode noted in the ER. Postictal phase lasting more than 30 minutes. Vitals were unremarkable. Labs were insignificant with only mild elevation in the white count. CT brain pending. Chest x-ray negative for aspiration. EKG showed sinus rhythm with QTc 439. CT brain without contrast was negative for hemorrhage or ischemia. Shoulder XR was negative Loading dose of keppra was given Brain MRI showed no acute changes. Plan Recommended that even if EEG comes normal patient needs to continue Keppra 500 mg twice daily due to witnessed seizure twice and prolonged postictal phase. Will follow-up with blood cultures due to fever spike. -Dr Ye will review extended EEG today -Continue Keppra 500 mg BID -Midazolam as needed for breakthrough seizure - Seizure precautions and aspiration precaution - Follow-up with repeat blood cultures due to fever spike overnight #Elevated T. bili #Leukocytosis #Normocytic anemia #Postextubation #Possible Aspiration Pneumonia per CT finding #Lactic acidosis, resolved #Elevated CK #Anion gap metabolic acidosis, improved #Marijuana use Rest of the management as per ICU team. Plan of care discussed with neurologist, Dr Ephraim Foley MD PGY3 Attending Provider Attestation/Addendum I personally have seen and examined the patient virtually and I agreed with resident findings, assessment and plan of care. Patient has not had any seizures since admission. He had a fever spike last night and is getting blood cultures checked. Continue with Keppra 500 mg twice and follow-up with blood cultures. Reassurance given to the patient that the MRI brain was normal.
--- NOTE | 2024-11-22 14:15 | ESPR_ITS ---
Documentation for date of: 11/22/24 Subjective Subjective Interval history: Overnight, patient noted to have a febrile episode of 102.5 ?F. Patient also endorsed that he had 2 episodes of vomitings without any blood, bile. No further febrile episodes noted. This morning, patient denies any other complaints. Vitals are stable. Physical examination remains unremarkable labs done this morning showed uptrending WBC, 13.9, total bilirubin is 2.3, AST 65 with ALT and ALP within normal limits. Ultrasound of abdomen is ordered which did not show any significant abnormality. Hepatitis panel came back negative. MRI brain with contrast did not show any significant abnormality. Pending EEG read. Blood cultures were sent. Will continue to follow-up with the liver functions. If liver functions continue to uptrend, will workup further. Exam Vital Signs Temp Pulse Resp BP Pulse Ox O2 Del Method O2 Flow Rate 98.1 F 103 H 24 H 131/80 H 97 Room Air 2 11/22/24 12:00 11/22/24 12:00 11/22/24 12:00 11/22/24 12:00 11/22/24 12:00 11/22/24 12:00 11/21/24 11:00 FiO2 35 11/21/24 08:00 Narrative Exam General: Awake. HEENT: Normocephalic, atraumatic, mucous membranes moist. Heart: Regular rate and rhythm, no murmurs. Lungs: Clear to auscultation with no wheezing or crackles. Abdomen: Soft, nondistended, mild tenderness noted in the RUQ on deep palpation, positive bowel sounds. ?No guarding or rebound tenderness. Neurologic: Alert and oriented x3, no gross neurological deficit, and patient able to move all 4 extremities. Extremities: No edema. Skin: No rash or ecchymoses. Objective Labs 11/23/24 04:51 11/23/24 04:51 Labs: Laboratory Results - last 24 hr 11/22/24 05:20 WBC 13.9 H RBC 4.30 L Hgb 13.3 L Hct 38.3 L MCV 89 MCH 30.9 MCHC 34.7 RDW Std Deviation 39.2 Plt Count 238 Neut % (Auto) 77 Lymph % (Auto) 16 [place] % (Auto) 6 Eos % (Auto) 0 Baso % (Auto) 0 Neut # (Auto) 10.8 H Lymph # (Auto) 2.2 [place] # (Auto) 0.9 H Eos # (Auto) 0.0 Baso # (Auto) 0.0 Immature Gran # (Auto) 0.06 H Absolute Nucleated RBC 0.00 Immature Gran % 0 Nucleated RBC % 0 Sodium 145 Potassium 3.4 Chloride 108 H Carbon Dioxide 23.7 Anion Gap 13 BUN < 5 L Creatinine 0.9 Estim Creat Clear Calc 148.0 eGFR > 60 BUN/Creatinine Ratio 6 L Glucose 92 Calculated Osmolality 285 Calcium 9.8 Corrected Calcium 9.8 Phosphorus 3.0 Magnesium 1.8 Total Bilirubin 2.3 H D AST 65 H ALT 24 Alkaline Phosphatase 54 Total Protein 6.8 Albumin 4.4 Globulin 2.4 Albumin/Globulin Ratio 1.8 Hepatitis A IgM Ab Non Reactive Hep Bs Antigen Non Reactive Hep B Core IgM Ab Non Reactive Hepatitis C Antibody Non Reactive ABG Interpretation ABG results: 11/20/24 11/20/24 11/20/24 14:10 15:03 15:17 ABG pH 7.22 L 7.31 L ABG pCO2 52 H 43 ABG pO2 35 L* 510 H D ABG HCO3 21 21 ABG O2 Saturation 56 L 101 H ABG Base Excess -7 L -5 L VBG pH 7.22 L VBG pCO2 43 VBG pO2 51 VBG Base Excess -10 L 11/20/24 11/20/24 11/21/24 16:23 17:56 04:32 ABG pH 7.23 L 7.34 L D 7.46 H D ABG pCO2 51 H 42 33 ABG pO2 496 H 219 H D 163 H D ABG HCO3 21 23 23 ABG O2 Saturation 100 H 100 H 100 H ABG Base Excess -7 L -3 0 VBG pH VBG pCO2 VBG pO2 VBG Base Excess Quality Measures Quality Measures VTE prophylaxis (Heparin SC ) Assessment & Plan Assessment Current Active Medications: Generic Name Dose Route Start Last Admin Trade Name Freq PRN Reason Stop Dose Admin Acetaminophen 650 mg 11/20/24 17:07 Acetaminophen 325 Mg Tablet PO 12/20/24 17:06 Q4HR PRN Pain Scale 1-10 or Temp >100 Enoxaparin Sodium 40 mg 11/21/24 21:00 11/21/24 21:27 Enoxaparin Sod Inj 40 Mg/0.4 Ml Syringe SC 12/05/24 20:59 40 mg HS HANNA Administration Haloperidol Lactate 5 mg 11/20/24 18:05 Haloperidol Lact Inj 5 Mg/Ml Vial IV 11/25/24 18:04 Q6HR PRN AGITATION (SEVERE) Levetiracetam 500 mg 11/21/24 09:00 11/22/24 08:55 Levetiracetam Inj 100 Mg/Ml Vial 5ml IVP 12/21/24 08:59 500 mg Q12HR HANNA Administration Midazolam HCl 2 mg 11/21/24 10:05 Midazolam Inj 1 Mg/Ml Vial 2 Ml IVP 11/26/24 10:04 X1 PRN Seizure > 3 minutes Ondansetron HCl 4 mg 11/21/24 16:15 Ondansetron Inj 2 Mg/Ml Inj 2 Ml IVP 12/21/24 16:14 Q6HR PRN NAUSEA OR VOMITING Protocol Plan This patient is a 19-year-old male with a past medical history of anxiety who presented to [facility] ED on 11/20 after a ground-level fall secondary to seizure- like activity. The patient was admitted to ICU for management of status epilepticus, and then downgraded to medical floors on 11/21. #Status epilepticus, resolved #New onset seizures #Acute encephalopathy, resolving #Lactic acidosis, resolved #Elevated CK, resolving Patient was noted to have new onset seizure-like activity, which was what brought the patient to the ED. Patient's seizures could not be controlled with midazolam in ED, so patient was intubated for additional sedation, which stopped the patient's seizures. Patient does not have any history of head trauma, stroke, abnormalities on , or significant childhood developmental delay. Additionally, patient does not have any family history of seizures. Exact etiology is unclear at this time. Diagnostics: CT head without contrast negative for acute processes. Plan: Neurology consulted, appreciate recommendations Continue continuous EEG, pending read MRI head with and without contrast ordered, pending Keppra 500 mg twice daily Midazolam as needed for breakthrough seizures Seizure precautions and aspiration precautions Patient to follow-up with outpatient neurology #Intractable vomiting, resolving #Mild Transaminitis #Marijuana use Patient noted to have significant vomiting on downgrade on 11/21. Possibly secondary to excessive marijuana use or delayed reaction to sedating medications used in intubation. Noted to elevation in Total bilirubin to 2.3 and AST 65 Plan: Ondansetron 4 mg every 4 hour as needed for nausea/vomiting USD Abdomen did not show any significant abnormality Heapatitis panel came back negative Clear liquid diet, advance as tolerated Will continue to monitor LFT DVT Prophylaxis: Lovenox GI Prophylaxis: N/A Bowel: N/A Diet: Advance as tolerated [place]: N/A Lines: Peripheral IV Antibiotics: N/A Code Status: FULL Reason for Hospitalization: Status epilepticus Other Barriers to Discharge: EEG Patient plan of care was discussed with the attending physician, Dr. Danette Mackay, PGY2 Attending Provider Attestation/Addendum I have discussed and was present for the essential components of the history, physical examination, diagnosis, and treatment plan with the resident. I agree with the patient's care as documented by the resident and amended herein by me. Yovani Samaniego DO. Although this document has been carefully reviewed, there may still be some phonetic and other typographical errors. These errors are purely grammatical due to imperfections in the software program and should not be construed in any way to compromise the substance of the patient's medical care during this visit.
[2024-11-22 14:19] LABS: HIV (1&2) Antibody Rapid Non-Reactive
--- NOTE | 2024-11-22 15:15 | PC.SS ---
SS met with patient regarding his d/c plan. Pt is alert/oriented. Pt was admitted for Status Epilepticicus. Pt confirmed demographic and contact information is correct on facesheet. Pt resides with both parents. Pt ambulates independently without assistance or DME. Pt is ok with all ADLs. Pt is employed automotive parts counter associate. Patient?s pharmacy of choice is [facility]. Pt named his parents, mom, Nayeli Reed or dad, Maikolsandra HuertaReed medical decision makers if he is unable. Patient?s choice is to return home upon d/c. Dad will provide transportation. Pt states not diabetic and is not on dialysis. Pt states he does not have PCP. SS provided verbal choices for PCP. Patient's choice is [facility]. SS has spoken to James from [facility] and scheduled pt hospital follow up appointment for Wednesday at 3:45pm with Dr. Randy Thomas at [address] [facility]. [id number]. SS provided pt with [facility] [employer] with appointment time/date/address. D/C plan: Return home Next of Kin: Nayeli Villaltalo, mom, phone# [phone] PCP: Will establish with Dr. Randy Thomas at [facility] Address: Correct on facesheet
[2024-11-22] MEDS: ENOXAPARIN SOD INJ 40 MG/0.4 ML SYRINGE SC (20:40)
[2024-11-23] VITALS (9 sets, daily range): BP systolic 114–132; BP diastolic 61–88; PULSE 43–106; RESP 15–98; TEMP 36.2–36.9; O2SAT 96–98; BMI 24.3
[2024-11-23 05:26] LABS: Basophils # (Auto) 0.0 Thou/mm3 (0.0-0.2); Basophils % (Auto) 0 % (0-2.5); Eosinophils # (Auto) 0.1 Thou/mm3 (0.0-0.5); Eosinophils % (Auto) 1 % (0-10); Hematocrit 36.0 % (41.0-53.0); Hemoglobin 12.6 g/dL (13.5-16.0); Immature Granulocytes Auto 0.03 Thou/mm3 (0.00-0.00); Lymphocytes # (Auto) 1.9 Thou/mm3 (1.0-4.8); Lymphocytes % (Auto) 22 % (10-50); Mean Corpuscular HGB Conc 35.0 g/dl (31.0-37.0); Mean Corpuscular Hemoglobin 30.7 pg (25.0-35.0); Mean Corpuscular Volume 88 fL (80-100); Monocytes # (Auto) 0.8 Thou/mm3 (0.0-0.8); Monocytes % (Auto) 9 % (0-12); Neutrophils # (Auto) 6.0 Thou/mm3 (1.8-7.7); Neutrophils % (Auto) 68 % (37-80); Nucleated Red Blood Cell # 0.00 Thou/mm3 (0.00-0.00); Nucleated Red Blood Cell % 0 /100 WBC (0); Platelet Count 228 Thou/mm3 (140-440); RDW Standard Deviation 38.5 fL (35.1-43.9); Red Blood Count 4.11 Miln/mm3 (4.50-5.90); White Blood Count 8.8 Thou/mm3 (4.5-11.0)
[2024-11-23 05:51] LABS: Alanine Aminotransferase 44 U/L (10-49); Albumin, Serum 4.3 gm/dL (3.5-5.0); Albumin/Globulin Ratio 1.9 (1.2-2.2); Alkaline Phosphatase 49 U/L (46-116); Anion Gap 11 (7-16); Aspartate Amino Transferase 172 U/L (0-34); BUN/Creatinine Ratio 6 Ratio (12-20); Bilirubin,Total 1.8 mg/dL (0.3-1.2); Blood Urea Nitrogen 5 mg/dL (9-23); Calcium 9.4 mg/dL (8.3-10.6); Calcium (Corrected) 9.4 mg/dL (8.5-10.1); Carbon Dioxide 27.4 mMol/L (20.0-31.0); Chloride 107 mMol/L (98-107); Creatinine (Component) 0.8 mg/dL (0.6-1.3); Estimated Creatinine Clearance 161.7 mL/min (>60); Globulin 2.3 gm/dL (2.3-3.5); Glucose 96 mg/dL (74-106); Magnesium 1.6 mg/dL (1.6-2.6); Osmolality,Calculated 285 (275-295); Phosphorous 3.4 mg/dL (2.4-5.1); Potassium 4.0 mMol/L (3.4-5.1); Sodium 145 mMol/L (136-145); Total Protein 6.6 gm/dL (5.7-8.2); eGFR > 60 See Note
[2024-11-23] MEDS: levETIRAcetam INJ 100 MG/ML VIAL 5ML 500 MG IVP (09:14)
--- NOTE | 2024-11-23 11:50 | ESPR_ITS ---
<Statement entered by Stefan Awan MD - 11/23/24 14:37> Patient seen and assessed in hospital bed denies having any concerning symptoms at this time; moreover, he did cough up a small piece of flash which is likely secondary to tongue laceration from seizures. Patient's MRI results are negative for any concerning findings and EEG still pending read. Patient did spike a fever in the hospital 2 days ago as a result blood cultures were ordered; moreover, so far there is no growth in 24 hours. Will continue to monitor the patient for acute changes and await neurology recommendations regarding patient's disposition. I have personally seen and examined the patient. I agree with the resident's assessment and plan as documented below. Stefan Awan DO PGY-2 Internal Medicine - [facility] Documentation for date of: 11/23/24 Subjective Subjective Interval history: Overnight events: No acute events overnight. Patient was seen and examined at bedside. AM vitals and labs reviewed. Patient does not have any acute complaints at this time. Does not note any additional episodes of seizures. Patient did spit up a stringy, fleshy material after multiple attempts of coughing up. Patient noted that he had been feeling something stuck in his throat ever since he was extubated, and now that he was able to cough that up, it is now improved. WBC 8.8, bilirubin 1.8, AST 172, ALT 44 Hepatitis panel negative Ultrasound of abdomen negative for acute processes. Blood cultures negative after 24 hours. MRI head negative for acute processes. EEG read pending, also pending further recommendations from neurology. Continue Keppra 500 mg twice daily. Will continue to monitor LFTs, R factor 2.1, suggesting mixed hepatocellular and cholestatic etiologies. Given negative viral panel, it is possibly an autoimmune cause of elevated LFTs. Fleshy material that the patient coughed up is most likely tissue that became dislodged during either the patient's seizure or intubation. Review of systems otherwise negative except for what is mentioned above. Exam Vital Signs Temp Pulse Resp BP Pulse Ox O2 Del Method O2 Flow Rate 98.4 F 74 16 132/73 H 98 Room Air 2 11/23/24 08:00 11/23/24 08:00 11/23/24 08:00 11/23/24 08:00 11/23/24 08:00 11/23/24 08:00 11/21/24 11:00 FiO2 35 11/21/24 08:00 Narrative Exam Physical Exam: General: Alert, no acute distress. Skin: Warm, dry, intact. Head: Normocephalic, atraumatic. Eye: Normal conjunctiva, PERRL. Throat: Oral mucosa moist. Tongue lacerations noted. Cardiovascular: Regular rate and rhythm, no murmur, +S1/S2. Respiratory: Lungs are clear to auscultation, respirations unlabored, no crackles, no wheezing. Gastrointestinal: Soft, nontender, non-distended. No guarding or rebound tenderness. Extremities: No edema, no cyanosis, no clubbing. 2+ radial pulse bilaterally, 2+ pedal pulse bilaterally. Neuro: No focal deficits observed. Conversant, moving all extremities. No overt cerebellar signs/incoordination. Psychiatric: Cooperative, appropriate affect. Objective Labs 11/23/24 04:51 11/23/24 04:51 Labs: Laboratory Results - last 24 hr 11/22/24 11/23/24 05:20 04:51 WBC 8.8 D RBC 4.11 L Hgb 12.6 L Hct 36.0 L MCV 88 MCH 30.7 MCHC 35.0 RDW Std Deviation 38.5 Plt Count 228 Neut % (Auto) 68 Lymph % (Auto) 22 [place] % (Auto) 9 Eos % (Auto) 1 Baso % (Auto) 0 Neut # (Auto) 6.0 Lymph # (Auto) 1.9 [place] # (Auto) 0.8 Eos # (Auto) 0.1 Baso # (Auto) 0.0 Immature Gran # (Auto) 0.03 H Absolute Nucleated RBC 0.00 Immature Gran % 0 Nucleated RBC % 0 Sodium 145 Potassium 4.0 D Chloride 107 Carbon Dioxide 27.4 Anion Gap 11 BUN 5 L Creatinine 0.8 Estim Creat Clear Calc 161.7 eGFR > 60 BUN/Creatinine Ratio 6 L Glucose 96 Calculated Osmolality 285 Calcium 9.4 Corrected Calcium 9.4 Phosphorus 3.4 Magnesium 1.6 Total Bilirubin 1.8 H D AST 172 H ALT 44 Alkaline Phosphatase 49 Total Protein 6.6 Albumin 4.3 Globulin 2.3 Albumin/Globulin Ratio 1.9 Hepatitis A IgM Ab Non Reactive Hep Bs Antigen Non Reactive Hep B Core IgM Ab Non Reactive Hepatitis C Antibody Non Reactive HIV 1&2 Antibody Rapid Non-Reactive ABG Interpretation ABG results: 11/20/24 11/20/24 11/20/24 14:10 15:03 15:17 ABG pH 7.22 L 7.31 L ABG pCO2 52 H 43 ABG pO2 35 L* 510 H D ABG HCO3 21 21 ABG O2 Saturation 56 L 101 H ABG Base Excess -7 L -5 L VBG pH 7.22 L VBG pCO2 43 VBG pO2 51 VBG Base Excess -10 L 11/20/24 11/20/24 11/21/24 16:23 17:56 04:32 ABG pH 7.23 L 7.34 L D 7.46 H D ABG pCO2 51 H 42 33 ABG pO2 496 H 219 H D 163 H D ABG HCO3 21 23 23 ABG O2 Saturation 100 H 100 H 100 H ABG Base Excess -7 L -3 0 VBG pH VBG pCO2 VBG pO2 VBG Base Excess Quality Measures Quality Measures VTE prophylaxis (Heparin SC ) Assessment & Plan Assessment Current Active Medications: Generic Name Dose Route Start Last Admin Trade Name Freq PRN Reason Stop Dose Admin Acetaminophen 650 mg 11/20/24 17:07 Acetaminophen 325 Mg Tablet PO 12/20/24 17:06 Q4HR PRN Pain Scale 1-10 or Temp >100 Enoxaparin Sodium 40 mg 11/21/24 21:00 11/22/24 20:40 Enoxaparin Sod Inj 40 Mg/0.4 Ml Syringe SC 12/05/24 20:59 40 mg HS HANNA Administration Haloperidol Lactate 5 mg 11/20/24 18:05 Haloperidol Lact Inj 5 Mg/Ml Vial IV 11/25/24 18:04 Q6HR PRN AGITATION (SEVERE) Levetiracetam 500 mg 11/21/24 09:00 11/23/24 09:14 Levetiracetam Inj 100 Mg/Ml Vial 5ml IVP 12/21/24 08:59 500 mg Q12HR HANNA Administration Midazolam HCl 2 mg 11/21/24 10:05 Midazolam Inj 1 Mg/Ml Vial 2 Ml IVP 11/26/24 10:04 X1 PRN Seizure > 3 minutes Ondansetron HCl 4 mg 11/21/24 16:15 Ondansetron Inj 2 Mg/Ml Inj 2 Ml IVP 12/21/24 16:14 Q6HR PRN NAUSEA OR VOMITING Protocol Plan This patient is a 19-year-old male with a past medical history of anxiety who presented to [facility] ED on 11/20 after a ground-level fall secondary to seizure- like activity. The patient was admitted to ICU for management of status epilepticus, and then downgraded to medical floors on 11/21. #Status epilepticus, resolved #New onset seizures #Acute encephalopathy, resolving #Lactic acidosis, resolved #Elevated CK, resolving Patient was noted to have new onset seizure-like activity, which was what brought the patient to the ED. Patient's seizures could not be controlled with midazolam in ED, so patient was intubated for additional sedation, which stopped the patient's seizures. Patient does not have any history of head trauma, stroke, abnormalities on , or significant childhood developmental delay. Additionally, patient does not have any family history of seizures. Exact etiology is unclear at this time. Diagnostics: CT head without contrast negative for acute processes. Plan: Neurology consulted, appreciate recommendations Continue continuous EEG, taken, pending read MRI head with and without contrast ordered, negative for acute findings Keppra 500 mg twice daily Midazolam as needed for breakthrough seizures Seizure precautions and aspiration precautions Patient to follow-up with outpatient neurology #Intractable vomiting, resolving #Mild Transaminitis #Marijuana use Patient noted to have significant vomiting on downgrade on 11/21. Possibly secondary to excessive marijuana use or delayed reaction to sedating medications used in intubation. Noted to elevation in Total bilirubin to 2.3 and AST 65 Plan: Ondansetron 4 mg every 4 hour as needed for nausea/vomiting USD Abdomen did not show any significant abnormality Heapatitis panel came back negative Given lack of further vomiting, advanced diet to regular Will continue to monitor LFT DVT Prophylaxis: Lovenox GI Prophylaxis: N/A Bowel: N/A Diet: Regular [place]: N/A Lines: Peripheral IV Antibiotics: N/A Code Status: FULL Reason for Hospitalization: Status epilepticus Other Barriers to Discharge: EEG read Patient plan of care was discussed with the attending physician, Dr. Danette Glover, PGY-1 Attending Provider Attestation/Addendum I have discussed and was present for the essential components of the history, physical examination, diagnosis, and treatment plan with the resident. I agree with the patient's care as documented by the resident and amended herein by me. Yovani Tingle, DO. Although this document has been carefully reviewed, there may still be some phonetic and other typographical errors. These errors are purely grammatical due to imperfections in the software program and should not be construed in any way to compromise the substance of the patient's medical care during this visit. Patient seen and evaluated this AM. Continue Keppra 500 mg twice daily, no further signs of seizure. All brain imaging negative thus far, will reach out to neurology today for EEG results, may be able to be discharged later today
[2024-11-23] MEDS: Magnesium Sulfate 4 GM Ivpb 4 GM/50 ML BAG IV (13:10)
--- NOTE | 2024-11-23 15:49 | PD.RESDS ---
Planned Discharge Date 11/23/24 DS: Providers Provider Date of admission: 11/20/24 17:07 Primary care physician: Physician No Primary/Family Admitting Provider: Juan Block MD Attending Provider on Admission: Mode Samaniego DO Consults: 11/21/24 16:16 Consult to Neurology / Tele-Neurology Routine Comment: Consulting Provider: Jacob Ye Attending Provider on DC: Mode Samaniego DO Discharging Provider: Juan Glover DO Anticipated date of discharge: 11/23/24 DS: Diagnosis Problem List Completed Was Problem List Reviewed/Reconciled?: Yes Hospital Course Hospital Course Hospital course: Reason for hospitalization: Status epilepticus Summary: This patient is a 19-year-old male with a past medical history of anxiety who presented to [facility] ED on 11/20 after a ground-level fall secondary to seizure-like activity. The patient was admitted to ICU for management of status epilepticus, and then downgraded to medical floors on 11/21. The patient was going to the bathroom on the morning of 11/20, when his mother heard a loud sound, and when she went to check in on him, she found him tense and having tonic-clonic movements with his upper extremity. The episode only lasted a few minutes. On route to [facility] ED, the patient was noted to have heart rate in the 40s and SBP in the 80s with appearing diaphoretic and pale. On both the ambulance ride and in the ED, the patient was noted to be confused. The patient would then have a second seizure-like episode, which was not responsive to multiple doses of midazolam. Decision was made to intubate the patient to initiate sedation for arrest of his seizure-like activity, and the patient was admitted to ICU for further management, including continuous EEG and neurology consultation. After sedation with fentanyl, propofol, midazolam, and ketamine, the patient was noted to have termination of his seizure-like activity. On 11/21, patient had no further seizure-like episodes and sedation was weaned off early in the morning. Patient then tolerated extubation without any issues. Neurology recommended Keppra 500 mg twice daily. After downgrade to medical floors, the patient was also noted to have several episodes of vomiting and 1 febrile episode of 102.5 ?F, as well as elevated liver enzymes. US abdomen and hepatitis panel negative. Due to MRI head resulting as negative for acute findings and continuous monitoring EEG negative for epileptiform discharges, the patient was medically cleared to be discharged to continue Keppra 500 mg twice daily, follow up with outpatient neurology with plans to repeat another EEG outpatient, and to repeat CMP in one week to follow LFTs. Discharge Recommendations: - Follow up with PCP within 1 week of discharge and repeat CMP in 1 week - Continue rest of medications as previously prescribed - Return to the ED or call EMS if symptoms return and/or worsen - Start to take keppra 500mg twice daily - Follow up with Dr. Ye within 1 week of discharge Seizure Precautions - No driving for three (3) months from the last episode (11/20/2024) per guidelines for the [facility] unless cleared by your Neurologist. - Avoid large water bodies, fireplaces, high places, high altitudes. - Avoid climbing on ladders/heights. - Avoid using powered/heavy machinery tools. - Avoid using sharp instruments unattended. - Avoid tub bath or hot tub bath. Use only shower baths while standing. If you don't have a PCP, you can make an appointment at the [facility]: [address] [place] [address] Hospital Diagnoses: #Status epilepticus, resolved #New onset seizures #Acute encephalopathy, resolving #Lactic acidosis, resolved #Elevated CK, resolving #Intractable vomiting, resolving #Mild Transaminitis #Marijuana use Patient plan of care was discussed with attending physician Dr. Danette Glover, PGY-1 Status at Discharge Overall status at discharge: patient is back to baseline Time Spent with Patient Time attestation: Total time spent providing and/or coordinating discharge services: Time spent: Greater than 30 minutes Exam Vital Signs Temp Pulse Resp BP Pulse Ox O2 Del Method O2 Flow Rate 98.0 F 91 15 119/79 96 Room Air 2 11/23/24 12:00 11/23/24 12:11/23/24 12:11/23/24 12:11/23/24 12:11/23/24 12:11/21/24 11:00 FiO2 35 11/21/24 08:00 Narrative Exam Physical Exam: General: Alert, no acute distress. Skin: Warm, dry, intact. Head: Normocephalic, atraumatic. Eye: Normal conjunctiva, PERRL. Throat: Oral mucosa moist. Tongue lacerations noted. Cardiovascular: Regular rate and rhythm, no murmur, +S1/S2. Respiratory: Lungs are clear to auscultation, respirations unlabored, no crackles, no wheezing. Gastrointestinal: Soft, nontender, non-distended. No guarding or rebound tenderness. Extremities: No edema, no cyanosis, no clubbing. 2+ radial pulse bilaterally, 2+ pedal pulse bilaterally. Neuro: No focal deficits observed. Conversant, moving all extremities. No overt cerebellar signs/incoordination. Psychiatric: Cooperative, appropriate affect. Discharge Plan Plan Patient Disposition: HOME (Self Care) Patient condition on transfer: Stable Care Plan Goals: -Follow-up with PCP within 1 week of discharge. If you do not have appointment, please follow-up with the [facility] with Dr. Mackay. Call [phone] to make an appointment. -Start to take keppra 500mg twice daily -Follow up with Dr. Ye within 1 week of discharge -Return to ED if symptoms persist or return Seizure Precautions - No driving for three (3) months from the last episode (11/20/2024) per guidelines for the [facility] unless cleared by your Neurologist. - Avoid large water bodies, fireplaces, high places, high altitudes. - Avoid climbing on ladders/heights. - Avoid using powered/heavy machinery tools. - Avoid using sharp instruments unattended. - Avoid tub bath or hot tub bath. Use only shower baths while standing. Prescriptions/Referrals Prescriptions/Med Rec: New levetiracetam [Keppra] 500 mg tablet 500 mg PO BID Qty: 30 0RF Referrals: No Primary/Family,Physician [Primary Care Provider] Jacob Ye MD [Physician, Neurology] Outpatient Orders (i.e. Home Health, Labs, Imaging): Liver Panel (Routine) Timeframe: 1 Week Location: Determined by Patient Ordered By: Aguila Mackay Patient/Caregiver Discharge Instructions Education Materials: Epilepsy How Seizures Affect Body, Treating Epilepsy: Medicines, Self-Care for Epilepsy, Epilepsy: Safety During a Seizure Print Language: Citizen Of [place] Stand Alone Forms: [employer] Award Info., Patient Portal Info Letter Discharge Order Discharge Orders: Discharge (Routine); Ordered 11/23/24 Ordered By: Aguila Mackay Quality Discharge Quality Measures VTE prophylaxis MD Attestestation MD Attestation I have discussed and was present for the essential components of the discharge history, physical examination, diagnosis, and discharge treatment plan with the resident. I agree with the patient's discharge care as documented by the resident and amended herein by me. Yovani Samaniego, . The patient understood all discharge instructions, all questions were answered satisfactorily. The patient was instructed to return to the Emergency Department is symptoms worsened or persisted. Patient will discharge on Keppra 500 mg twice daily, all all brain imaging negative, EEG unremarkable per neurology, will need to follow-up with outpatient neurology within 1 week of discharge as well as his primary care provider which will be at the [facility] within 1 week of discharge. All questions were answered satisfactorily. Although this document has been carefully reviewed, there may still be some phonetic and other typographical errors. These errors are purely grammatical due to imperfections in the software program and should not be construed in any way to compromise the substance of the patient's medical care during this visit.
--- NOTE | 2024-11-23 16:31 | PD.RESPRO ---
Documentation for date of: 11/23/24 Subjective Subjective Interval history: Patient was seen and examined at the bedside. No acute overnight events were reported. Patient did not had a fever spike overnight. Labs showed unremarkable white count and stable hemoglobin. Blood cultures came negative x 24 hours. Will repeat another EEG as outpatient within a week after follow-up with neurologist and recommended to continue Keppra 500 mg twice daily. Patient is stable from neurology standpoint to be discharged. Exam Vital Signs Temp Pulse Resp BP Pulse Ox O2 Del Method O2 Flow Rate 98.0 F 91 15 119/79 96 Room Air 2 11/23/24 12:00 11/23/24 12:00 11/23/24 12:00 11/23/24 12:00 11/23/24 12:00 11/23/24 12:00 11/21/24 11:00 FiO2 35 11/21/24 08:00 Narrative Exam GENERAL APPEARANCE: Patient is awake and alert x 3. HEENT: NC, AT. MMM. EOMI, clear conjunctiva, oropharynx clear. NECK: Supple without lymphadenopathy. No stiffness or restricted ROM. HEART: Regular rate and regular rhythm, normal S1/S2, no m/r/g LUNGS: CTAB, moving air well. No crackles or wheezes are heard. ABDOMEN: Soft, nontender, nondistended with good bowel sounds heard. BACK: No CVAT, no obvious deformity. EXTREMITIES: Without cyanosis, clubbing or edema. NEUROLOGICAL: Grossly nonfocal. AO x 3. CN not formally tested but appear grossly intact. Skin: Warm and dry without any rash. Psych: Appropriate mood and affect Objective Labs 11/23/24 04:51 11/23/24 04:51 Labs: Laboratory Results - last 24 hr 11/23/24 04:51 WBC 8.8 D RBC 4.11 L Hgb 12.6 L Hct 36.0 L MCV 88 MCH 30.7 MCHC 35.0 RDW Std Deviation 38.5 Plt Count 228 Neut % (Auto) 68 Lymph % (Auto) 22 [place] % (Auto) 9 Eos % (Auto) 1 Baso % (Auto) 0 Neut # (Auto) 6.0 Lymph # (Auto) 1.9 [place] # (Auto) 0.8 Eos # (Auto) 0.1 Baso # (Auto) 0.0 Immature Gran # (Auto) 0.03 H Absolute Nucleated RBC 0.00 Immature Gran % 0 Nucleated RBC % 0 Sodium 145 Potassium 4.0 D Chloride 107 Carbon Dioxide 27.4 Anion Gap 11 BUN 5 L Creatinine 0.8 Estim Creat Clear Calc 161.7 eGFR > 60 BUN/Creatinine Ratio 6 L Glucose 96 Calculated Osmolality 285 Calcium 9.4 Corrected Calcium 9.4 Phosphorus 3.4 Magnesium 1.6 Total Bilirubin 1.8 H D AST 172 H ALT 44 Alkaline Phosphatase 49 Total Protein 6.6 Albumin 4.3 Globulin 2.3 Albumin/Globulin Ratio 1.9 ABG Interpretation ABG results: 11/20/24 11/20/24 11/20/24 14:10 15:03 15:17 ABG pH 7.22 L 7.31 L ABG pCO2 52 H 43 ABG pO2 35 L* 510 H D ABG HCO3 21 21 ABG O2 Saturation 56 L 101 H ABG Base Excess -7 L -5 L VBG pH 7.22 L VBG pCO2 43 VBG pO2 51 VBG Base Excess -10 L 11/20/24 11/20/24 11/21/24 16:23 17:56 04:32 ABG pH 7.23 L 7.34 L D 7.46 H D ABG pCO2 51 H 42 33 ABG pO2 496 H 219 H D 163 H D ABG HCO3 21 23 23 ABG O2 Saturation 100 H 100 H 100 H ABG Base Excess -7 L -3 0 VBG pH VBG pCO2 VBG pO2 VBG Base Excess Quality Measures Quality Measures VTE prophylaxis (Heparin SC ) Assessment & Plan Assessment Current Active Medications: Generic Name Dose Route Start Last Admin Trade Name Freq PRN Reason Stop Dose Admin Acetaminophen 650 mg 11/20/24 17:07 Acetaminophen 325 Mg Tablet PO 12/20/24 17:06 Q4HR PRN Pain Scale 1-10 or Temp >100 Enoxaparin Sodium 40 mg 11/21/24 21:00 11/22/24 20:40 Enoxaparin Sod Inj 40 Mg/0.4 Ml Syringe SC 12/05/24 20:59 40 mg HS HANAN Administration Haloperidol Lactate 5 mg 11/20/24 18:05 Haloperidol Lact Inj 5 Mg/Ml Vial IV 11/25/24 18:04 Q6HR PRN AGITATION (SEVERE) Levetiracetam 500 mg 11/21/24 09:00 11/23/24 09:14 Levetiracetam Inj 100 Mg/Ml Vial 5ml IVP 12/21/24 08:59 500 mg Q12HR HANNA Administration Midazolam HCl 2 mg 11/21/24 10:05 Midazolam Inj 1 Mg/Ml Vial 2 Ml IVP 11/26/24 10:04 X1 PRN Seizure > 3 minutes Ondansetron HCl 4 mg 11/21/24 16:15 Ondansetron Inj 2 Mg/Ml Inj 2 Ml IVP 12/21/24 16:14 Q6HR PRN NAUSEA OR VOMITING Protocol Plan This patient is a 19-year-old male with no known medical history presented with confusion and had a grand mal seizure in the ER. Patient was intubated and mechanically ventilated due to ongoing persistent seizure/mentation. Admitted for seizure workup. #Acute encephalopathy likely due to, resolved #Grand mal seizure ? Patient presented with confusion and grand mal seizure while in ER. According to EMS, patient's blood pressure was in 80s systolic and he was bradycardic. Patient was given atropine to increase his heart rate. No hypotension or bradycardic episode noted in the ER. Postictal phase lasting more than 30 minutes. Vitals were unremarkable. Labs were insignificant with only mild elevation in the white count. CT brain pending. Chest x-ray negative for aspiration. EKG showed sinus rhythm with QTc 439. CT brain without contrast was negative for hemorrhage or ischemia. Shoulder XR was negative Loading dose of keppra was given Brain MRI showed no acute changes. Extended EEG was normal. Plan Will follow-up with another EEG as outpatient recommended to continue Keppra 500 mg twice daily and safe to discharge from neurology standpoint Patient has been seizure-free for more than 48 hours Seizure precautions and aspiration precaution No fever spike was recorded on blood cultures came negative x 24 hours #Elevated T. bili #Leukocytosis #Normocytic anemia #Postextubation #Possible Aspiration Pneumonia per CT finding #Lactic acidosis, resolved #Elevated CK #Anion gap metabolic acidosis, improved #Marijuana use Rest of the management as per ICU team. Plan of care discussed with neurologist, Dr Ephraim Foley MD PGY3 Attending Provider Attestation/Addendum I personally have seen and examined the patient at the bedside and agreed with resident's findings, assessment and plan of care. Patient remains seizure-free after being on Keppra. EEG showed no significant epileptiform discharges but it does not rule out the diagnosis of seizures. I will continue to keep him on Keppra 500 mg twice a day patient is stable for discharge home and I will see him back in 2 weeks. With close monitoring for any behavioral problems. Advised him about the importance of compliance.
== END 2024-11-23 16:45 | disposition home or self-care (01) | DRG 53 ==
LOC: SERX 16:58 → SERHOLD 17:15 → S2SX 17:38 → S3NX 11-22 01:44
PROVIDERS: Student in an Organized Health Care Education/Training Program; Emergency Provider Emergency Medicine; Visit Provider Student in an Organized Health Care Education/Training Program
DX: G40.401 Other generalized epilepsy and epileptic syndromes, not intractable, with status epilepticus (principal); Z78.1 Physical restraint status; F41.9 Anxiety disorder, unspecified; G93.41 Metabolic encephalopathy; F12.90 Cannabis use, unspecified, uncomplicated; E87.20 Acidosis, unspecified; J96.00 Acute respiratory failure, unspecified whether with hypoxia or hypercapnia; J69.0 Pneumonitis due to inhalation of food and vomit; R74.8 Abnormal levels of other serum enzymes; W18.30XA Fall on same level, unspecified, initial encounter; D64.9 Anemia, unspecified; Z79.899 Other long term (current) drug therapy; Z87.891 Personal history of nicotine dependence; S00.532A Contusion of oral cavity, initial encounter; R74.01 Elevation of levels of liver transaminase levels
CPT/HCPCS: 36415; 36600; 70450; 70553; 71045; 71275; 73030; 76700; 80053; 80074; 80307; 80320; 80329; 82140; 82550; 82803; 83605; 83735; 84100; 84436; 84443; 84484; 85025; 85379; 86703; 87040; 87081; 87205; 87400; 87811; 93005; 93225; 94002; 94003; 95813; 96361; 96372; 96374; 96375; 96376; 99284; A4649; A9577; J0131; J1200; J1644; J1650; J1953; J2250; J2251; J2470; J2704; J3010; J3360; J3475; J3490; J7120; Q9967; G0480